=== PATIENT | male | born 1960 | race Caucasian/White ===

== ENCOUNTER 2016-12-01 07:33 | Day surgery (SDC) | payer MEDICARE, OTHER ==
[~2016-12-01 07:33] MED LIST: LACTATED RINGERS 1,000 ML IV SCH
[2016-12-01] MEDS ORDERED: LIDOCAINE 1% 20 ML VIAL (10MG/ML) FOR IV START INTRADERMA ONE (08:07)
[2016-12-01] MEDS ORDERED: PROPOFOL 10 MG/ML 20 ML VIAL IV ONE (08:48)
[2016-12-01] MEDS ORDERED: LIDOCAINE 1% INJ 10MG/ML (20 ML MDV) ONE (08:48)
--- NOTE | 2016-12-01 14:57 | P.PCN ---
Date of Procedure: 12/01/16 Preoperative Diagnosis: Postoperative Diagnosis: Procedure(s) Performed: Procedure: Colonoscopy and biopsy and polypectomy. Preoperative diagnosis: History of rectal polyp. Postoperative diagnosis: 1. Flat cecal and descending colon polyps biopsied. 2. Flat rectal polyp removed piecemeal. Sigmoid diverticulosis. Preparation: HalfLytely prep. Sedation: Was provided by anesthesia. Brief clinical history: The patient is a 56-year-old male with history of reflux esophagitis and flat adenomatous rectal polyps. The patient had colonoscopy in the past and was recommended a repeat exam to remove any residual polyps in the rectum and to possibly use argon plasma coagulation. The patient has been noted to have positive occult blood in his stools in the past. Procedure: With the patient on his left lateral decubitus position and after informed consent and adequate sedation, the perianal area was inspected and it did not show any fissures or fistulas. There were no masses felt on digital rectal examination. The Olympus CFQ 160L video colonoscope was then inserted in the rectum and the usual fashion and advanced to the cecum. There were several diverticular orifices seen scattered in the sigmoid with no evidence of acute diverticulitis or strictures. There was a flat benign appearing cecal polyp spread over an area of around 2 cm or so in greatest dimension. This was biopsied. In addition, there was a smaller flat polyp in the proximal descending colon which I biopsied as well. In the rectum, close to the the anorectal junction, there was a flat polypoid area extending to a surface of 2 cm or so in greatest dimension. I removed that polyp piecemeal with the snare and I did not think we need to apply the argon plasma coagulation at this time. There was good hemostasis. I retroflexed the endoscope in the rectum before the endoscope was withdrawn. The patient tolerated the procedure well. Plan: The patient was reassured and I discussed with his caregivers/legal guardians. I would consider repeat exam in 6 months to 1 year depending on his pathology results. I would keep you updated on his progress. Implants: Indications for Procedure: Operative Findings: Description of Procedure:
== END 2016-12-01 10:30 | disposition home or self-care (01) ==
LOC: ORWHC2ENDO 07:33
DX: Z12.11 Encounter for screening for malignant neoplasm of colon (principal); D12.0 Benign neoplasm of cecum; D12.4 Benign neoplasm of descending colon; D12.8 Benign neoplasm of rectum; K57.30 Diverticulosis of large intestine without perforation or abscess without bleeding; E07.9 Disorder of thyroid, unspecified; I25.10 Atherosclerotic heart disease of native coronary artery without angina pectoris; Z79.02 Long term (current) use of antithrombotics/antiplatelets; Z79.899 Other long term (current) drug therapy
CPT/HCPCS: 88305; 45380; 45385; J2001; J2704

== ENCOUNTER 2017-01-12 20:52 | Emergency (ER) | payer MEDICARE, OTHER ==
[2017-01-12 21:07] LABS: Basophils % (A) 0 %; CH 35.4; CHCM 35.3; Eosinophils % (A) 0 %; HCT 42.4 % (39.0-53.0); HDW 2.25; Luc # (Auto) 0.31; Luc % (Auto) 3; Lymphocytes # (A) 1.5 k/uL (1.0-4.8); Lymphocytes % (A) 15 %; MCH 35.6 pg (25.0-35.0); MCHC 35.4 g/dL (31.0-37.0); MCV 100.7 fL (80.0-100.0); Macrocytosis Slight; Mean Platelet Volume 8.1; Monocytes # (A) 0.8 k/uL (0-1.0); Monocytes % (A) 7 %; Neutrophils # (A) 7.8 k/uL (1.3-7.7); Neutrophils % (A) 75 %; RBC 4.21 m/uL (4.30-5.90); RDW 14.2 % (11.5-15.5); WBC 10.4 k/uL (3.8-10.6); WBC (Perox) 10.15
[2017-01-12] MEDS ORDERED: DIPH,PERTUS(ACELL)TETVAC-LF 0.5 ML VIAL IM ONE (21:08)
[2017-01-12] MEDS ORDERED: ceFAZolin 1,000 MG in DEXTROSE/WATER 1 50ML.BAG IVPB STA (21:10)
[2017-01-12 21:16] LABS: INR 0.9 (<1.2); Partial Thromboplastin Time 26.7 sec (22.0-30.0); Prothrombin Time 9.5 sec (9.0-12.0)
[2017-01-12 21:25] VITALS: RESP 18
[2017-01-12 21:28] LABS: ALT 32 U/L (21-72); AST 28 U/L (17-59); Alkaline Phosphatase 106 U/L (38-126); Amylase 57 U/L (30-110); Anion Gap 11 mmol/L; Blood Urea Nitrogen 7 mg/dL (9-20); Calcium 8.2 mg/dL (8.4-10.2); Carbon Dioxide 21 mmol/L (22-30); Chloride 91 mmol/L (98-107); Glucose 88 mg/dL (74-99); Non-African American GFR(MDRD) >60 (>60 ml/min/1.73 sqM); Potassium 4.6 mmol/L (3.5-5.1); Sodium 123 mmol/L (137-145); Total Bilirubin 0.4 mg/dL (0.2-1.3); Total Protein 6.5 g/dL (6.3-8.2)
--- NOTE | 2017-01-12 21:28 | ED ---
Fall HPI - General Stated Complaint: fall Time Seen by Provider: 01/12/17 21:19 - History of Present Illness Initial Comments: This is a 56-year-old male on Plavix who presents emergency department for a fall and scalp laceration. Per EMS it was unwitnessed. He lives at a assisted living facility. Staff went in to check on him this evening and noted that there was blood all over the apartment. When they found him he was on the couch and he had blood all over his face. There is a copious amount of blood on the floor and he noticed a large scalp laceration and thus EMS was called. The patient is intoxicated and does not recall exactly what happened however he states that he fell in the kitchen. He is unsure if he lost consciousness however states that he had difficulty getting up after the floor. He denies any headache. Denies any other complaints. States that he has no pain. He does have a history of right-sided weakness. Patient was activated as a level II trauma due to the large scalp laceration on Plavix and unknown mechanism of injury. MD Complaint: fall - Related Data Home Medications Medication Instructions Recorded Confirmed Cholecalciferol (Vitamin D3) 2,000 unit PO DAILY 11/26/16 01/12/17 [Vitamin D3] Clopidogrel [Plavix] 75 mg PO DAILY 11/26/16 01/12/17 Docusate [Colace] 100 mg PO BID 11/26/16 01/12/17 Levothyroxine Sodium [Synthroid] 125 mcg PO DAILY 11/26/16 01/12/17 Melatonin 3 mg PO HS 11/26/16 01/12/17 Potassium Chloride ER [K-Dur 20] 20 meq PO DAILY 11/26/16 01/12/17 Ranitidine HCl [Zantac] 75 mg PO HS 11/26/16 01/12/17 Sertraline HCl [Zoloft] 150 mg PO DAILY 11/26/16 01/12/17 Tamsulosin HCl [Flomax] 0.4 mg PO DAILY 11/26/16 01/12/17 risperiDONE [RisperDAL] 1 mg PO BID 11/26/16 01/12/17 Calcium Carbonate/Vitamin D3 1 tab PO DAILY 01/12/17 01/12/17 [Calcium 600-Vit D3 400 Caplet] Allergies Allergy/AdvReac Type Severity Reaction Status Date / Time No Known Allergies Allergy Verified 01/12/17 21:08 Review of Systems ROS Statement: Those systems with pertinent positive or pertinent negative responses have been documented in the HPI. ROS Other: All systems not noted in ROS Statement are negative. General Exam - General Exam Comments Initial Comments: Constitutional: Awake alert Appears comfortable Head: No cephalic, there is a 9 cm central parietal scalp laceration that is curvilinear and goes down to the skull periosteum. Bleeding is well controlled with pressure. 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 Psych: Appropriate mood and affect Course Vital Signs 01/12/17 21:21 Temperature 96.7 F L Pulse Rate 92 Respiratory 18 Rate Blood Pressure 126/70 O2 Sat by Pulse 98 Oximetry - Reevaluation(s) Reevaluation #1: 01/12/17 21:28 EKG showing normal sinus rhythm with a rate of 98. No abnormal ST segment changes or T-wave inversions. QTC is 477. All other intervals are normal. There is one PVC. Reevaluation #2: 01/12/17 21:[address] Zelaya on the phone. I reported all injuries and current workup in process. Due to the unclear history and possible LOC with the patient being on Plavix with significant head trauma her recommendation was to send the patient to [facility] for monitoring. Procedures - Laceration Laceration #1 Consent Obtained: verbal consent Time Out Performed: No Indication: laceration Site: scalp Description: linear Depth: simple, single layer Sedation/Analgesia: none Anesthetic Used: lidocaine 2%, with epi Anesthesia Technique: local infiltration Amount (mls): 10 Pre-repair: wound explored, irrigated extensively Type of Sutures: nylon Size of Sutures: 4-0 Number of Sutures: 7 Technique: horizontal mattress Patient Tolerated Procedure: well, no complications Medical Decision Making - Medical Decision Making This is a 56-year-old male who presents emergency department for a fall. A large scalp laceration that was repaired at bedside with 7 horizontal mattress sutures. Bleeding was well-controlled. CT of the head and neck which were unremarkable. Had no other acute injuries found. However due to his story and unknown loss of consciousness and being on Plavix with significant head trauma the decision was made to transfer to higher level of care for neurosurgery in the event that the patient decompensated and this was discussed with Dr. Zelaya. The patient was accepted for transfer by Dr. Mullins. Patient is currently stable for transfer to [facility]. - Lab Data Result diagrams: 01/12/17 20:55 01/12/17 20:55 Lab Results 01/12/17 01/12/17 01/12/17 Range/Units 20:55 20:55 20:55 WBC 10.4 (3.8-10.6) k/uL RBC 4.21 L (4.30-5.90) m/uL Hgb 15.0 (13.0-17.5) gm/dL Hct 42.4 (39.0-53.0) % MCV 100.7 H (80.0-100.0) fL MCH 35.6 H (25.0-35.0) pg MCHC 35.4 (31.0-37.0) g/dL RDW 14.2 (11.5-15.5) % Plt Count 217 (150-450) k/uL Neutrophils % 75 % Lymphocytes % 15 % Monocytes % 7 % Eosinophils % 0 % Basophils % 0 % Neutrophils # 7.8 H (1.3-7.7) k/uL Lymphocytes # 1.5 (1.0-4.8) k/uL Monocytes # 0.8 (0-1.0) k/uL Eosinophils # 0.0 (0-0.7) k/uL Basophils # 0.0 (0-0.2) k/uL Macrocytosis Slight PT (9.0-12.0) sec INR (<1.2) APTT (22.0-30.0) sec Sodium 123 L (137-145) mmol/L Potassium 4.6 (3.5-5.1) mmol/L Chloride 91 L (98-107) mmol/L Carbon Dioxide 21 L (22-30) mmol/L Anion Gap 11 mmol/L BUN 7 L (9-20) mg/dL Creatinine 0.80 (0.66-1.25) mg/dL Est GFR (MDRD) Af Amer >60 (>60 ml/min/1.73 sqM) Est GFR (MDRD) Non-Af >60 (>60 ml/min/1.73 sqM) Glucose 88 (74-99) mg/dL Plasma Lactic Acid Augusto (0.7-2.0) mmol/L Calcium 8.2 L (8.4-10.2) mg/dL Total Bilirubin 0.4 (0.2-1.3) mg/dL AST 28 (17-59) U/L ALT 32 (21-72) U/L Alkaline Phosphatase 106 (38-126) U/L Total Creatine Kinase 206 H (55-170) U/L CK-MB (CK-2) 2.7 H* (0.0-2.4) ng/mL CK-MB (CK-2) Rel Index 1.3 Troponin I <0.012 (0.000-0.034) ng/mL Total Protein 6.5 (6.3-8.2) g/dL Albumin 3.3 L (3.5-5.0) g/dL Amylase 57 (30-110) U/L Lipase 84 (23-300) U/L Serum Alcohol 272 mg/dL Blood Type Blood Type Recheck Antibody Screen Spec Expiration Date 01/12/17 01/12/17 01/12/17 Range/Units 20:55 20:55 20:55 WBC (3.8-10.6) k/uL RBC (4.30-5.90) m/uL Hgb (13.0-17.5) gm/dL Hct (39.0-53.0) % MCV (80.0-100.0) fL MCH (25.0-35.0) pg MCHC (31.0-37.0) g/dL RDW (11.5-15.5) % Plt Count (150-450) k/uL Neutrophils % % Lymphocytes % % Monocytes % % Eosinophils % % Basophils % % Neutrophils # (1.3-7.7) k/uL Lymphocytes # (1.0-4.8) k/uL Monocytes # (0-1.0) k/uL Eosinophils # (0-0.7) k/uL Basophils # (0-0.2) k/uL Macrocytosis PT 9.5 (9.0-12.0) sec INR 0.9 (<1.2) APTT 26.7 (22.0-30.0) sec Sodium (137-145) mmol/L Potassium (3.5-5.1) mmol/L Chloride (98-107) mmol/L Carbon Dioxide (22-30) mmol/L Anion Gap mmol/L BUN (9-20) mg/dL Creatinine (0.66-1.25) mg/dL Est GFR (MDRD) Af Amer (>60 ml/min/1.73 sqM) Est GFR (MDRD) Non-Af (>60 ml/min/1.73 sqM) Glucose (74-99) mg/dL Plasma Lactic Acid Augusto 3.3 H* (0.7-2.0) mmol/L Calcium (8.4-10.2) mg/dL Total Bilirubin (0.2-1.3) mg/dL AST (17-59) U/L ALT (21-72) U/L Alkaline Phosphatase (38-126) U/L Total Creatine Kinase (55-170) U/L CK-MB (CK-2) (0.0-2.4) ng/mL CK-MB (CK-2) Rel Index Troponin I (0.000-0.034) ng/mL Total Protein (6.3-8.2) g/dL Albumin (3.5-5.0) g/dL Amylase (30-110) U/L Lipase (23-300) U/L Serum Alcohol mg/dL Blood Type O Positive Blood Type Recheck O Pos Antibody Screen NEGATIVE Spec Expiration Date 01/15/2017 - 2354 Disposition Clinical Impression: Fall, Scalp laceration, Hyponatremia Disposition: OTHER INSTITUTION NOT DEFINED Condition: Stable - Out of Hospital Transfer - Req. Specs Out of Hospital Transfer - Requested Specifics: Other Emergency Center ([facility]
[2017-01-12 21:29] LABS: Creatine Kinase 206 U/L (55-170)
[2017-01-12 21:36] LABS: Alcohol 272 mg/dL
[2017-01-12 21:42] LABS: Troponin I <0.012 ng/mL (0.000-0.034)
[2017-01-12 21:46] LABS: Creatine Kinase MB 2.7 ng/mL (0.0-2.4)
[2017-01-12] MEDS ORDERED: SODIUM CHLORIDE 0.9% 1,000 ML IV STA (21:50)
--- NOTE | 2017-01-12 22:14 | XR ---
AP pelvis HISTORY: Trauma and pain frontal view of the pelvis submitted on 2 images No comparisons Patient is rotated. Bone mineralization is reduced. Joint spaces are mildly reduced in the hips. Vasc ular calcifications are present within the pelvis. IMPRESSION: No fracture or dislocation
--- NOTE | 2017-01-12 22:15 | XR ---
EXAMINATION TYPE: XR chest 1V DATE OF EXAM: 01/12/2017 COMPARISON: Prior chest x-ray 03/15/2015 HISTORY: Trauma and pain TECHNIQUE: Single frontal view of the chest is obtained. FINDINGS: There is no focal air space opacity, pleural effusion, or pneumothorax seen. The patient is rotated. The cardiac silhouette size is within normal limits accounting for rotation and technique . The osseous structures are intact. IMPRESSION: No acute process.
--- NOTE | 2017-01-12 22:32 | CT ---
EXAMINATION TYPE: CT brain jethro zuleta DATE OF EXAM: 01/12/2017 COMPARISON: NONE HISTORY: Fall today with mutiple injuries. CT DLP: 1848 mGycm Automated exposure control for dose reduction was used. TECHNIQUE: CT scan of the head and cervical spine are performed without contrast. FINDINGS: There is a focus of prominent cutaneous soft tissue swelling over the left frontal bone. Th e soft tissue swelling contains high attenuation consistent with subcutaneous hemorrhage, in addition to a few tiny air bubbles. The underlying left frontal bone is negative for fracture. The remainder of the skull is negative for fracture. The paranasal sinuses and mastoid sinus air cells and middle e ar cavities are clear. There is no acute intracranial hemorrhage, mass effect, or midline shift. The ventricles and sulci are within normal limits in size. The globes are intact and the visualized sinuses are clear. Cervical spine is visualized in its entirety from C1 through upper thoracic levels and demonstrates s atisfactory alignment without evidence of acute fracture or dislocation. Prevertebral soft tissue ap pears within normal limits. The C1-C2 articulation is unremarkable. Moderate multilevel cervical spo ndylosis changes are appreciated. IMPRESSION: 1. THERE IS NO ACUTE FRACTURE OR DISLOCATION EVIDENT IN THE CERVICAL SPINE. 2. NO ACUTE INTRACRANIAL HEMORRHAGE, MASS EFFECT, OR MIDLINE SHIFT IS SEEN. SUBCUTANEOUS HEMATOMA NOT ED OVER THE LEFT FRONTAL BONE.
--- NOTE | 2017-01-12 22:34 | CT ---
EXAMINATION TYPE: CT facial bones wo con DATE OF EXAM: 01/12/2017 COMPARISON: NONE HISTORY: Fall today with mutiple injuries. CT DLP: 567 mGycm Automated exposure control for dose reduction was used. TECHNIQUE: CT scan of the sinuses is performed without contrast, axial images are obtained, coronal r eformatted images are also reviewed. FINDINGS: There is no facial skeleton fracture or malalignment. The paranasal sinuses including the frontal, ethmoid, sphenoid, and maxillary sinuses bilaterally ar e well-aerated without abnormal opacification. The ostiomeatal complex is patent bilaterally on the coronal images. Visualized portion of mastoid air cells show no abnormal opacification. The globes are intact bilate rally. IMPRESSION: Negative for fracture or malalignment. The paranasal sinuses are clear and the ostiomeata l complex is patent bilaterally.
[2017-01-12 23:49] VITALS: BP 109/63; PULSE 75; TEMP 96.9
== END 2017-01-12 23:40 | disposition other institution (70) ==
LOC: EC 20:52
DX: S01.01XA Laceration without foreign body of scalp, initial encounter (principal); E87.1 Hypo-osmolality and hyponatremia; Z23 Encounter for immunization; Z79.01 Long term (current) use of anticoagulants; Z79.899 Other long term (current) drug therapy; W19.XXXA Unspecified fall, initial encounter; Y92.000 Kitchen of unspecified non-institutional (private) residence as the place of occurrence of the external cause
CPT/HCPCS: 99285 ×2; 96365 ×2; 96361 ×3; 90471 ×2; 12004 ×2; 36415; 93005; 86900; 86901; 80053; 82150; 82550; 82553; 83605; 83690; 84484; 85025; 85610; 85730; 86850; 80320; 71010; 72170; 72125; 70486; 70450; 90715; J0690

== ENCOUNTER → 2020-09-27 | Outpatient (CLI) | payer MEDICARE, OTHER ==
--- NOTE | 2020-09-27 19:16 | CTL ---
EXAMINATION TYPE: CT Low Dose Lung DATE OF EXAM ORDERED: 09/27/2020 HISTORY: Personal history of tobacco use. Lung cancer screening CT DLP: 70.[address] CTDI: 2.10 mGy Automated exposure control for dose reduction was used. SCREENING VISIT: Yes COMPARISON: 01/12/2017 and 03/15/2015 chest radiographs TECHNIQUE: Low dose computed tomography scan was performed through the chest at 1 mm thick sections a nd reconstructed images in the coronal plane at [address] DIAGNOSTIC QUALITY: Satisfactory FINDINGS: LUNG NODULES: None. LUNGS: COPD: Severity: Mild centrilobular emphysema. Apical blebs and bulla. Scattered paraseptal emphysema is also seen. Fibrosis: Severity: None Lymph nodes: No lymphadenopathy. Other findings: None RIGHT PLEURAL SPACE: Effusion: None Calcification: None Thickening: Mild Pneumothorax: None LEFT PLEURAL SPACE: Effusion: None Calcification: None Thickening: Mild Pneumothorax: None HEART: Heart Size: Normal Coronary calcification: Marked Pericardial effusion: None OTHER FINDINGS: Upper abdomen: Visualized portions of the adrenal glands are normal. Bony thorax: There are numerous redemonstrated compression deformities of the thoracic spine involvin g T6, T9, and T12, which are similar to 2015 x-ray comparison. Supraclavicular region: Unremarkable. Other: Bilateral gynecomastia. IMPRESSION: 1. No suspicious pulmonary nodules. 2. Centrilobular and paraseptal mild emphysematous change. 3. Marked calcified atherosclerotic disease. 4. Chronic compression deformities of the thoracic spine. CT LUNG RAD AND CT CHEST RECOMMENDATION: Lung-Rad 1 Negative: Continue annual screening with LDCT in 12 months. S Modifier (other clinically significant findings): Marked calcified atherosclerotic disease.
== END | disposition home or self-care (01) ==
LOC: RADCTMAIN 12:26 → EEVIPCON 12:40
DX: Z12.2 Encounter for screening for malignant neoplasm of respiratory organs (principal); J43.2 Centrilobular emphysema; I25.10 Atherosclerotic heart disease of native coronary artery without angina pectoris
CPT/HCPCS: 71271

== ENCOUNTER 2022-05-08 15:58 | Inpatient (IN) | payer MEDICARE, OTHER ==
[2022-05-08 16:48] LABS: Basophils % (A) 0 %; Eosinophils % (A) 0 %; HCT 42.5 % (39.0-53.0); HGB 14.9 gm/dL (13.0-17.5); Lymphocytes # (A) 0.5 k/uL (1.0-4.8); Lymphocytes % (A) 4 %; MCH 34.2 pg (25.0-35.0); MCV 97.9 fL (80.0-100.0); Mean Platelet Volume 7.6; Monocytes # (A) 0.6 k/uL (0-1.0); Monocytes % (A) 4 %; Neutrophils # (A) 13.1 k/uL (1.3-7.7); Neutrophils % (A) 91 %; Platelet Count 329 k/uL (150-450); RBC 4.34 m/uL (4.30-5.90); RDW 13.1 % (11.5-15.5); WBC 14.4 k/uL (3.8-10.6)
[2022-05-08] MEDS ORDERED: THIAMINE 100 MG/ML 2 ML VIAL IM STA (16:49)
--- NOTE | 2022-05-08 16:51 | ED ---
Altered Mental Status HPI - General Chief Complaint: Altered Mental Status Stated Complaint: confusion Time Seen by Provider: 05/08/22 16:00 Source: patient, EMS Mode of arrival: EMS Limitations: altered mental status - History of Present Illness Initial Comments: This patient is 62-year-old man with history of previous heavy alcohol use who is sent from what appears to be adult foster care living situation to have evaluation here. He reportedly has been behaving bizarrely, the main thing they note was that he often will leave the stove on and then walk away from it. When I interview the patient, he has no complaints. 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 Complaint: other -: unknown Consistency of Symptoms: unknown Context: unknown Associated Symptoms: denies other symptoms - Related Data Home Medications Medication Instructions Recorded Confirmed Cholecalciferol (Vitamin D3) 2,000 unit PO DAILY 11/26/16 01/12/17 [Vitamin D3] Clopidogrel [Plavix] 75 mg PO DAILY 11/26/16 01/12/17 Docusate [Colace] 100 mg PO BID 11/26/16 01/12/17 Levothyroxine Sodium [Synthroid] 125 mcg PO DAILY 11/26/16 01/12/17 Melatonin 3 mg PO HS 11/26/16 01/12/17 Potassium Chloride ER [K-Dur 20] 20 meq PO DAILY 11/26/16 01/12/17 Sertraline HCl [Zoloft] 150 mg PO DAILY 11/26/16 01/12/17 Tamsulosin HCl [Flomax] 0.4 mg PO DAILY 11/26/16 01/12/17 raNITIdine HCL [Zantac] 75 mg PO HS 11/26/16 01/12/17 risperiDONE [RisperDAL] 1 mg PO BID 11/26/16 01/12/17 Calcium Carbonate/Vitamin D3 1 tab PO DAILY 01/12/17 01/12/17 [Calcium 600-Vit D3 400 Caplet] Allergies Allergy/AdvReac Type Severity Reaction Status Date / Time No Known Allergies Allergy Verified 05/08/22 16:17 Review of Systems ROS Statement: Those systems with pertinent positive or pertinent negative responses have been documented in the HPI. ROS Other: All systems not noted in ROS Statement are negative. Limitations: ROS unobtainable due to patients medical condition Constitutional: Denies: fever Respiratory: Denies: dyspnea Cardiovascular: Denies: chest pain Gastrointestinal: Denies: abdominal pain Past Medical History Past Medical History: Hypertension History of Any Multi-Drug Resistant Organisms: None Reported Past Surgical History: No Surgical Hx Reported Smoking Status: Current every day smoker Past Alcohol Use History: Abuse Past Drug Use History: None Reported General Exam Limitations: no limitations General appearance: alert, in no apparent distress Head exam: Present: atraumatic, normocephalic Eye exam: Present: normal appearance, PERRL, EOMI. Absent: scleral icterus, conjunctival injection Neck exam: Present: normal inspection. Absent: tenderness Respiratory exam: Present: normal lung sounds bilaterally. Absent: respiratory distress, wheezes, rales, rhonchi, stridor, chest wall tenderness Cardiovascular Exam: Present: regular rate, normal rhythm, normal heart sounds. Absent: systolic murmur, diastolic murmur, rubs, gallop GI/Abdominal exam: Present: soft. Absent: distended, tenderness, guarding, rebound, mass Extremities exam: Present: normal inspection, full ROM, normal capillary refill. Absent: pedal edema, calf tenderness Back exam: Present: normal inspection. Absent: vertebral tenderness Neurological exam: Present: alert. Absent: motor sensory deficit Skin exam: Present: warm, dry, intact, normal color. Absent: rash Course Vital Signs 05/08/22 05/08/22 15:59 17:38 Pulse Rate 96 87 Respiratory 18 18 Rate Blood Pressure 155/87 142/88 O2 Sat by Pulse 96 95 Oximetry Medical Decision Making - Lab Data Result diagrams: 05/08/22 16:31 05/08/22 16:31 Lab Results 05/08/22 05/08/22 05/08/22 Range/Units 16:31 16:31 16:31 WBC 14.4 H (3.8-10.6) k/uL RBC 4.34 (4.30-5.90) m/uL Hgb 14.9 (13.0-17.5) gm/dL Hct 42.5 (39.0-53.0) % MCV 97.9 (80.0-100.0) fL MCH 34.2 (25.0-35.0) pg MCHC 35.0 (31.0-37.0) g/dL RDW 13.1 (11.5-15.5) % Plt Count 329 (150-450) k/uL MPV 7.6 Neutrophils % 91 % Lymphocytes % 4 % Monocytes % 4 % Eosinophils % 0 % Basophils % 0 % Neutrophils # 13.1 H (1.3-7.7) k/uL Lymphocytes # 0.5 L (1.0-4.8) k/uL Monocytes # 0.6 (0-1.0) k/uL Eosinophils # 0.0 (0-0.7) k/uL Basophils # 0.0 (0-0.2) k/uL PT 9.7 (9.0-12.0) sec INR 0.9 (<1.2) APTT 22.8 (22.0-30.0) sec Sodium 136 L (137-145) mmol/L Potassium 4.3 (3.5-5.1) mmol/L Chloride 104 (98-107) mmol/L Carbon Dioxide 27 (22-30) mmol/L Anion Gap 5 mmol/L BUN 15 (9-20) mg/dL Creatinine 1.14 (0.66-1.25) mg/dL Est GFR (CKD-EPI)AfAm 79 (>60 ml/min/1.73 sqM) Est GFR (CKD-EPI)NonAf 68 (>60 ml/min/1.73 sqM) Glucose 113 H (74-99) mg/dL Calcium 9.1 (8.4-10.2) mg/dL Total Bilirubin 0.4 (0.2-1.3) mg/dL AST 29 (17-59) U/L ALT 31 (4-49) U/L Alkaline Phosphatase 90 (38-126) U/L Ammonia (<30) umol/L Troponin I (0.000-0.034) ng/mL Total Protein 6.7 (6.3-8.2) g/dL Albumin 3.8 (3.5-5.0) g/dL Serum Alcohol <10 mg/dL 05/08/22 05/08/22 Range/Units 16:31 16:31 WBC (3.8-10.6) k/uL RBC (4.30-5.90) m/uL Hgb (13.0-17.5) gm/dL Hct (39.0-53.0) % MCV (80.0-100.0) fL MCH (25.0-35.0) pg MCHC (31.0-37.0) g/dL RDW (11.5-15.5) % Plt Count (150-450) k/uL MPV Neutrophils % % Lymphocytes % % Monocytes % % Eosinophils % % Basophils % % Neutrophils # (1.3-7.7) k/uL Lymphocytes # (1.0-4.8) k/uL Monocytes # (0-1.0) k/uL Eosinophils # (0-0.7) k/uL Basophils # (0-0.2) k/uL PT (9.0-12.0) sec INR (<1.2) APTT (22.0-30.0) sec Sodium (137-145) mmol/L Potassium (3.5-5.1) mmol/L Chloride (98-107) mmol/L Carbon Dioxide (22-30) mmol/L Anion Gap mmol/L BUN (9-20) mg/dL Creatinine (0.66-1.25) mg/dL Est GFR (CKD-EPI)AfAm (>60 ml/min/1.73 sqM) Est GFR (CKD-EPI)NonAf (>60 ml/min/1.73 sqM) Glucose (74-99) mg/dL Calcium (8.4-10.2) mg/dL Total Bilirubin (0.2-1.3) mg/dL AST (17-59) U/L ALT (4-49) U/L Alkaline Phosphatase (38-126) U/L Ammonia <9 (<30) umol/L Troponin I 0.036 H* (0.000-0.034) ng/mL Total Protein (6.3-8.2) g/dL Albumin (3.5-5.0) g/dL Serum Alcohol mg/dL - EKG Data -: EKG Interpreted by Me EKG shows normal: sinus rhythm, axis (Normal), intervals (Normal), QRS complexes (Suspect old anteroseptal infarct.) Rate: normal (Rate 96 bpm) Disposition Clinical Impression: Altered mental status, Elevated troponin I level Disposition: ADMITTED IP TO THIS [facility] Condition: Fair Instructions (If sedation given, give patient instructions): Altered Mental Status (ED) Is patient prescribed a controlled substance at d/c from ED?: No Referrals: [facility] [Primary Care Provider] - 1-2 days
[2022-05-08 17:09] LABS: INR 0.9 (<1.2); Partial Thromboplastin Time 22.8 sec (22.0-30.0); Prothrombin Time 9.7 sec (9.0-12.0)
[2022-05-08 17:18] LABS: ALT 31 U/L (4-49); AST 29 U/L (17-59); African American GFR (CKD) 79 (>60 ml/min/1.73 sqM); Albumin 3.8 g/dL (3.5-5.0); Alcohol <10 mg/dL; Alkaline Phosphatase 90 U/L (38-126); Anion Gap 5 mmol/L; Blood Urea Nitrogen 15 mg/dL (9-20); Calcium 9.1 mg/dL (8.4-10.2); Carbon Dioxide 27 mmol/L (22-30); Chloride 104 mmol/L (98-107); Glucose 113 mg/dL (74-99); Non-African American GFR(CKD) 68 (>60 ml/min/1.73 sqM); Potassium 4.3 mmol/L (3.5-5.1); Sodium 136 mmol/L (137-145); Total Bilirubin 0.4 mg/dL (0.2-1.3); Total Protein 6.7 g/dL (6.3-8.2)
--- NOTE | 2022-05-08 17:37 | CT ---
EXAMINATION TYPE: CT brain wo con CT DLP: 1072.4 mGycm, Automated exposure control for dose reduction was used. DATE OF EXAM: 05/08/2022 5:06 PM COMPARISON: 01/12/2017. CLINICAL INDICATION:Male, 62 years old with history of Altered mental status TECHNIQUE: Brain: Axial CT images of the brain were obtained with coronal and sagittal reformats created and rev iewed. Contrast used: None. Oral contrast used: None. FINDINGS: Brain: Extra-axial spaces: No abnormal extra-axial fluid collections. Ventricular system: Dilatation in proportion to cerebral atrophy. Cerebral parenchyma: Hypodense remote injury of the right basal ganglia. Cerebral atrophy. No acute i ntraparenchymal hemorrhage or mass effect. The pham-white junction is well differentiated. Scattered hypoattenuating areas are seen within the white matter. Cerebellum: Unremarkable. Mass effect: No evidence of midline shift. Intracranial vasculature: Atherosclerotic calcifications of the intracranial vessels. Soft tissues: Normal. Calvarium/osseous structures: No depressed skull fracture. Paranasal sinuses and mastoid air cells: Mild scattered paranasal sinus disease. Visualized orbits: Bilateral aphakia IMPRESSION: 1. No acute intracranial process. 2. New from 2017 but appears chronic, right basal ganglia injury. 3. Scattered nonspecific white matter changes.
--- NOTE | 2022-05-08 17:41 | XR ---
EXAMINATION TYPE: XR chest 2V DATE OF EXAM: 05/08/2022 5:16 PM COMPARISON: Chest radiographs from 01/12/2017 TECHNIQUE: XR chest 2V Frontal and lateral views of the chest. CLINICAL INDICATION:Male, 62 years old with history of altered mental status; FINDINGS: Lungs/Pleura: There is no evidence of pleural effusion, focal consolidation, or pneumothorax. Pulmonary vascularity: Unremarkable. Heart/mediastinum: Cardiomediastinal silhouette is unremarkable. Musculoskeletal: No acute osseous pathology. Right proximal humerus fixation changes. The fracture si te appears to be an malalignment distal right humerus shortened up in the axilla. IMPRESSION: 1. No acute cardiopulmonary disease/process. 2. 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
[2022-05-08] MEDS ORDERED: NALOXONE 0.4 MG/ML 1 ML VIAL IV PRN (21:41)
[2022-05-08] MEDS ORDERED: ACETAMINOPHEN TAB 325 MG TAB PO PRN (21:41)
[2022-05-08] MEDS: SODIUM CHLORIDE 0.9% 1,000 ML IV SCH (22:06)
[2022-05-08 22:24] LABS: Amphetamine Screen,Urine Not Detected (NotDetected); Barbiturate Screen,Urine Not Detected (NotDetected); Benzodiazepines Screen,Urine Not Detected (NotDetected); Cocaine Screen,Urine Not Detected (NotDetected); Methadone Screen, Urine Not Detected (NotDetected); Opiate Screen,Urine Not Detected (NotDetected); Oxycodone Screen, Urine Not Detected (NotDetected); Phencyclidine Screen,Urine Not Detected (NotDetected); Tricyclic Antidepressant,Urine Not Detected (NotDetected); Urn Cannabinoid Scrn Not Detected (NotDetected)
--- NOTE | 2022-05-09 01:12 | P.HPIM ---
History of Present Illness H&P Date: 05/08/22 The patient is a 62-year-old male, resident of an adult foster care with a PMH of EtOH abuse, CVA with residual right-sided deficits and hypothyroidism who was sent to the emergency room due to confusion. The patient reports that over the past few weeks to months, he has not been feeling quite like himself and he has had an unsteady gait and difficulty ambulating. He denies experiencing dizziness or falls. He also reports not getting along well with other people at his facility. He reports a history of CVA 7-8 years ago with residual right upper extremity contracture. As per the ED physician, the patient was sent as the staff at the foster care were concerned since the patient would reportedly turn on the stove and walk away. The patient denies alcohol use. He also denied experiencing chest discomfort, fever, chills, cough, urinary complaints, nausea, or vomiting. CT brain in the emergency room revealed a likely chronic right basal ganglia injury along with scattered nonspecific white matter changes. 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 EKG revealed sinus rhythm at 96 bpm with poor R-wave progression and Q waves in leads V1 to V3. Laboratory evaluation was remarkable for leukocytosis of 14.4, troponin 0.036, and an unremarkable urine toxicology. Review of systems: Pertinent positives and negatives as discussed in HPI, a complete review of systems was performed and all other systems are negative. Physical examination: General: non toxic, no distress, appears older than stated age, normal weight Derm: no unusual rashes/lesions, warm Head: atraumatic, normocephalic, symmetric Eyes: EOMI, no lid lag, anicteric sclera, pupils equal round reactive to light ENT: Nose and ears atraumatic Neck: No cervical lymphadenopathy, trachea midline, supple Mouth: no lip lesion, mucus membranes moist Cardiovascular: S1S2 reg, no murmur, positive dorsalis pedis pulse bilateral, no edema Lungs: CTA bilateral, no rhonchi, no rales, no accessory muscle use Abdominal: soft, nontender to palpation, no guarding Ext: muscle strength 5/5 left upper and lower extremities, strength 3 out of 5 on the right lower extremity with right upper extremity contracture noted Neuro: CN II-XI grossly intact Psych: Alert, oriented, appropriate affect Assessment/plan Altered mental status with unsteady gait -Unclear etiology -Patient denying any new weakness or strokelike symptoms -PT consult Leukocytosis -Likely secondary to acute stressor -No signs of active infection at this time Chronic conditions: History of CVA, EtOH abuse -Continue with home meds DVT prophylaxis -Heparin subcu The patient is admitted with an anticipated less than 2 midnight stay for evaluation of AMS CODE STATUS: Full Code Discussed with: Patient Anticipated discharge date: in am Anticipated discharge place: Home Past Medical History Past Medical History: Hypertension History of Any Multi-Drug Resistant Organisms: None Reported Past Surgical History: No Surgical Hx Reported Smoking Status: Current every day smoker Past Alcohol Use History: Abuse Past Drug Use History: None Reported - Past Family History Mother Family Medical History: CVA/TIA Medications and Allergies Home Medications Medication Instructions Recorded Confirmed Type Cholecalciferol (Vitamin D3) 2,000 unit PO DAILY 11/26/16 01/12/17 History [Vitamin D3] Clopidogrel [Plavix] 75 mg PO DAILY 11/26/16 01/12/17 History Docusate [Colace] 100 mg PO BID 11/26/16 01/12/17 History Levothyroxine Sodium [Synthroid] 125 mcg PO DAILY 11/26/16 01/12/17 History Melatonin 3 mg PO HS 11/26/16 01/12/17 History Potassium Chloride ER [K-Dur 20] 20 meq PO DAILY 11/26/16 01/12/17 History Sertraline HCl [Zoloft] 150 mg PO DAILY 11/26/16 01/12/17 History Tamsulosin HCl [Flomax] 0.4 mg PO DAILY 11/26/16 01/12/17 History raNITIdine HCL [Zantac] 75 mg PO HS 11/26/16 01/12/17 History risperiDONE [RisperDAL] 1 mg PO BID 11/26/16 01/12/17 History Calcium Carbonate/Vitamin D3 1 tab PO DAILY 01/12/17 01/12/17 History [Calcium 600-Vit D3 400 Caplet] Allergies Allergy/AdvReac Type Severity Reaction Status Date / Time No Known Allergies Allergy Verified 05/08/22 16:17 Physical Exam Vitals: Vital Signs Temp Pulse Resp BP Pulse Ox 05/08/22 21:51 97.9 F 72 18 138/74 98 05/08/22 17:38 87 18 142/88 95 12/16/22 15:59 96 18 155/87 96 Intake and Output 05/08/22 05/08/22 05/09/22 14:59 22:59 06:59 Other: Weight 63.503 kg Results CBC & Chem 7: 05/08/22 16:31 05/08/22 16:31 Labs: Abnormal Lab Results - Last 24 Hours (Table) 05/08/22 05/08/22 05/08/22 Range/Units 16:31 16:31 16:31 WBC 14.4 H (3.8-10.6) k/uL Neutrophils # 13.1 H (1.3-7.7) k/uL Lymphocytes # 0.5 L (1.0-4.8) k/uL Sodium 136 L (137-145) mmol/L Glucose 113 H (74-99) mg/dL Troponin I 0.036 H* (0.000-0.034) ng/mL 05/08/22 Range/Units 22:06 WBC (3.8-10.6) k/uL Neutrophils # (1.3-7.7) k/uL Lymphocytes # (1.0-4.8) k/uL Sodium (137-145) mmol/L Glucose (74-99) mg/dL Troponin I 0.037 H* (0.000-0.034) ng/mL
[2022-05-09] MEDS: HEPARIN SODIUM,PORCINE/PF 5,000 UNIT/0.5 ML SYRINGE SQ SCH ×2 (11:42→17:16)
[2022-05-09 12:45] LABS: HCT 46.1 % (39.0-53.0); HGB 15.2 gm/dL (13.0-17.5); Macrocytosis Slight; Mean Platelet Volume 7.8; Platelet Count 278 k/uL (150-450); RBC 4.47 m/uL (4.30-5.90); RDW 13.6 % (11.5-15.5)
[2022-05-09] MEDS: SODIUM CHLORIDE 0.9% 1,000 ML IV SCH (12:50)
[2022-05-09 13:00] LABS: ALT 28 U/L (4-49); AST 26 U/L (17-59); African American GFR (CKD) >90 (>60 ml/min/1.73 sqM); Albumin 3.7 g/dL (3.5-5.0); Alkaline Phosphatase 84 U/L (38-126); Anion Gap 6 mmol/L; Blood Urea Nitrogen 21 mg/dL (9-20); Calcium 8.2 mg/dL (8.4-10.2); Carbon Dioxide 26 mmol/L (22-30); Chloride 106 mmol/L (98-107); Glucose 110 mg/dL (74-99); MCV 103.2 fL (80.0-100.0); Magnesium 1.6 mg/dL (1.6-2.3); Non-African American GFR(CKD) 80 (>60 ml/min/1.73 sqM); Sodium 138 mmol/L (137-145); Total Bilirubin 0.3 mg/dL (0.2-1.3); Total Protein 6.4 g/dL (6.3-8.2)
--- NOTE | 2022-05-09 14:10 | P.PN ---
Subjective Progress Note Date: 05/09/22 Hospital course: The patient is a 62-year-old male, resident of an adult foster group home resides at [facility] with a past medical history of previous EtOH abuse, CVA with residual right-sided deficits and hypothyroidism. He presented to the emergency department overnight with a chief complaint of confusion. The patient reportedly stated that over the past few months he has not quite been feeling like himself and believes he has been more unsteady resulting in difficulty with ambulation. Patient reports that he has not drank any alcohol in nearly 2 weeks. He denied experiencing any dizziness, lightheadedness, falls or injuries, or any other complaints. He does have right-sided deficits from previous CVA with a right upper extremity contracture and walks with a cane. ED physician reports that staff at the foster care were contacted because the patient reportedly turned on the stove and walked away so he was sent here for evaluation. Patient underwent full evaluation in the emergency department.CBC revealed mild leukocytosis with WBC count of 14.4 and CMP unremarkable. Troponin was minimally elevated at 0.036. EKG normal sinus rhythm at 96 bpm with no noted T wave or ST abnormality showing no signs of acute ischemia upon personal review. CT head negative for acute intercranial process revealing a chronic right basal ganglia injury and scattered nonspecific white matter changes. 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 Urine drug screen negative and serum alcohol also negative. Patient admitted under our services to observation for overnight monitoring. Troponins trended and flat at 0.036, 0.037, and 0.032. Patient remained asymptomatic denying any chest pain, discomfort, shortness of breath, palpitations, cough or congestion, dizziness, lightheadedness, or any other complaints at this time. Patient remained alert and oriented to person, place, time, and situation. TSH 5.180 with free T4 of 1.44. Repeat WBC count improving down to 13.0. Physical examination: Patient seen and fully evaluated at bedside this morning. Patient alert and oriented to person, time, place, and situation. Patient showing no signs of confusion or distress. We will continue to monitor patient throughout the day and ambulate patient in room and hallway to assess gait and further monitor for any episodes of alteration in mentation. Patient will likely be discharged later this afternoon pending clinical course. General: non toxic, no distress, appears at stated age Derm: warm, dry Head: atraumatic, normocephalic, symmetric Eyes: EOMI, no lid lag, anicteric sclera Mouth: no lip lesion, mucus membranes moist Cardiovascular: S1S2 reg, no murmur, positive posterior tibial pulse bilateral, Lungs: CTA bilaterally, no rhonchi, no rales , no accessory muscle use Abdominal: soft, nontender to palpation, no guarding, no appreciable organomegaly Ext: Right arm contracted, no edema, right lower extremity weakness Neuro: CN II-X grossly intact Psych: Alert, oriented, appropriate affect Assessment/plan Altered mental status with unsteady gait, resolved. -Patient alert and oriented to person, time, place, and situation and free from any complaints, questions, or concerns. -Workup negative. -Patient stable at this time. Leukocytosis, improved. -Likely due to stress or dehydration. No signs of infection. . History of EtOH abuse, patient reports he hasn't used alcohol in almost 2 weeks. . History of CVA with right-sided residual deficit, patient walks with cane. 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 Patient denies having any pain or complaints. Patient may follow-up with orthopedic surgery for evaluation on outpatient basis. CODE STATUS: Full Code DVT prophylaxis: Heparin Discussed with: Patient Anticipated discharge date: in am Anticipated discharge place: Home A total of 36 minutes was spent on the care of this complex patient more than 50% of the time was spent in counseling and care coordination. Objective - Vital Signs Vital signs: Vital Signs Temp 97.9 F 05/08/22 21:51 Pulse 76 05/09/22 06:58 Resp 18 05/09/22 06:58 BP 142/92 05/09/22 06:58 Pulse Ox 97 05/09/22 06:58 FiO2 Intake & Output 05/08/22 05/09/22 05/09/22 18:59 06:59 18:59 Weight 63.503 kg - Labs CBC & Chem 7: 05/09/22 12:09 05/09/22 12:09 Labs: Abnormal Lab Results - Last 24 Hours (Table) 12/05/08/22 05/08/22 Range/Units 16:31 16:31 16:31 WBC 14.4 H (3.8-10.6) k/uL Neutrophils # 13.1 H (1.3-7.7) k/uL Lymphocytes # 0.5 L (1.0-4.8) k/uL Sodium 136 L (137-145) mmol/L Glucose 113 H (74-99) mg/dL Troponin I 0.036 H* (0.000-0.034) ng/mL 05/08/22 Range/Units 22:06 WBC (3.8-10.6) k/uL Neutrophils # (1.3-7.7) k/uL Lymphocytes # (1.0-4.8) k/uL Sodium (137-145) mmol/L Glucose (74-99) mg/dL Troponin I 0.037 H* (0.000-0.034) ng/mL Assessment and Plan Assessment: Sp Wallace NP rendered care for this patient independently, reviewed the findings and plan as documented in the note above. I did not physically speak with our examined the patient on this date.
[2022-05-09 14:22] LABS: T4, Free (Free Thyroxine) 1.44 ng/dL (0.78-2.19)
[2022-05-09] MEDS ORDERED: ALBUTEROL NEBULIZED 2.5 MG/3 ML INHALATION PRN (15:46)
[2022-05-09] MEDS: LOSARTAN 25 MG TAB PO SCH (15:56)
[2022-05-09] MEDS: amLODIPine 10 MG TAB PO SCH (15:56)
[2022-05-09] MEDS: CLOPIDOGREL 75 MG TAB PO SCH (17:15)
[2022-05-09] MEDS: TAMSULOSIN 0.4 MG CAP.ER.24H PO SCH (17:16)
[2022-05-09] MEDS: LEVOTHYROXINE 137 MCG TAB PO SCH (17:16)
[2022-05-09] MEDS: SERTRALINE 50 MG TAB PO SCH (17:16)
--- NOTE | 2022-05-09 18:00 | P.DS ---
Providers Date of admission: 05/08/22 21:41 Expected date of discharge: 05/09/22 Attending physician: Anthony Flynn MD Primary care physician: [facility] Hospital Course: Discharge Diagnosis: Altered mental status with unsteady gait, resolved. Patient alert and oriented to person, time, place, and situation and free from any complaints, questions, or concerns. Workup negative. Patient stable for discharge back to [facility] at this time. Leukocytosis, improved. Likely due to stress or dehydration. No signs of infection. History of EtOH abuse, patient reports he hasn't used alcohol in almost 2 weeks but does drink when he can afford it. History of CVA with right-sided residual deficit, patient walks with cane. Ambulated in room and halls with a steady gait unassisted using cane. 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 Patient denies having any pain or complaints. Patient may follow-up with orthopedic surgery for evaluation on outpatient basis as needed if becomes symptomatic. Hospital Course: The patient is a 62-year-old male, resident of an adult fostercare home and resides at [facility] with a past medical history of previous EtOH abuse, CVA with residual right-sided deficits and hypothyroidism. He presented to the emergency department overnight with a chief complaint of confusion. The patient reportedly stated that over the past few months he has not quite been feeling like himself and believes he has been more unsteady resulting in difficulty with ambulation. Patient reports that he has not drank any alcohol in nearly 2 weeks. He denied experiencing any dizziness, lightheadedness, falls or injuries, or any other complaints. He does have right-sided deficits from previous CVA with a right upper extremity contracture and walks with a cane. ED physician reports that staff at the foster care were contacted because the patient reportedly turned on the stove and walked away so he was sent here for evaluation. Patient underwent full evaluation in the emergency department.CBC revealed mild leukocytosis with WBC count of 14.4 and CMP unremarkable. Troponin was minimally elevated at 0.036. EKG normal sinus rhythm at 96 bpm with no noted T wave or ST abnormality showing no signs of acute ischemia upon personal review. CT head negative for acute intercranial process revealing a chronic right basal ganglia injury and scattered nonspecific white matter changes. 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 Urine drug screen negative and serum alcohol also negative. Patient admitted under our services to observation for overnight monitoring. Troponins trended and flat at 0.036, 0.037, and 0.032. Patient remained asymptomatic denying any chest pain, discomfort, shortness of breath, palpitations, cough or congestion, dizziness, lightheadedness, or any other complaints at this time. Patient remained alert and oriented to person, place, time, and situation. TSH 5.180 with free T4 of 1.44. Repeat WBC count improving down to 13.0. Patient ambulating in room and wagner with RN and reported to have a steady gait walking with cane unassisted. Patient is medically stable at this time and stable for discharge back to [facility]. No medication changes were made during this admission. Physical examination: General: non toxic, no distress, appears at stated age Derm: warm, dry Head: atraumatic, normocephalic, symmetric Eyes: EOMI, no lid lag, anicteric sclera Mouth: no lip lesion, mucus membranes moist Cardiovascular: S1S2 reg, no murmur, positive posterior tibial pulse bilateral, Lungs: CTA bilaterally, no rhonchi, no rales , no accessory muscle use Abdominal: soft, nontender to palpation, no guarding, no appreciable organomegaly Ext: Right arm contracted, no edema, right lower extremity weakness Neuro: CN II-X grossly intact Psych: Alert, oriented, appropriate affect A total of 31 minutes of time were spent preparing this complex discharge summary. Pt was discharged on 05/09/22 at 6 PM. Sp Wallace NP rendered care for this patient independently, reviewed the findings and plan as documented in the note above. I did not physically speak with our examined the patient on this date. Patient Condition at Discharge: Stable Plan - Discharge Summary Discharge Rx Participant: No New Discharge Prescriptions: Continue risperiDONE [RisperDAL] 1 mg PO BID Tamsulosin HCl [Flomax] 0.4 mg PO DAILY Sertraline HCl [Zoloft] 150 mg PO DAILY Hydrocortisone Cream [Hydrocortisone 2.5% Cream] 1 applic TOPICAL DAILY PRN PRN Reason: SKIN ISSUES Albuterol Nebulized [Ventolin Nebulized] 2.5 mg INHALATION RT-QID PRN PRN Reason: Shortness Of Breath Cholecalciferol [Vitamin D3 (25 Mcg = 1000 Iu)] 50 mcg PO DAILY Acetaminophen [Tylenol] 650 mg PO Q4H PRN PRN Reason: Pain Or Fever > 100.5 Sodium Chloride Tab 1 gm PO DAILY Saline 0.65% Nasal [place] 2 spray EA NOSTRIL TID PRN PRN Reason: DRY NOSE/ALLERGIES Potassium Chloride ER [K-Dur 20] 20 meq PO DAILY Petroleum Jelly 1 applic TOPICAL BID Losartan Potassium [Cozaar] 25 mg PO DAILY Levothyroxine Sodium [Synthroid] 137 mcg PO DAILY Docusate [Colace] 100 mg PO BID Clopidogrel [Plavix] 75 mg PO DAILY amLODIPine [Norvasc] 10 mg PO DAILY Nystatin 100,000Unit/gm Cream [Mycostatin Cream] 1 applic TOPICAL HS PRN PRN Reason: UNDER RIGHT AXILLA, RASH Ipratropium Nebulized [Atrovent Nebulized 0.2 MG/ML] 0.5 mg INHALATION RT-Q6H PRN PRN Reason: Shortness Of Breath guaiFENesin-DM 100-10MG/5ML [Robitussin DM] 5 - 10 ml PO Q6H PRN PRN Reason: Congestion Sennosides [Senokot] 8.6 mg PO BID PRN PRN Reason: Constipation Melatonin 9 mg PO HS Calcium Carbonate/Vitamin D3 [Calcium 500 mg-Vit D3 5 mcg (200 Unit)] 1 tab PO BID Loratadine 10 mg PO DAILY Discharge Medication List Sertraline HCl [Zoloft] 150 mg PO DAILY 11/26/16 [History] Tamsulosin HCl [Flomax] 0.4 mg PO DAILY 11/26/16 [History] risperiDONE [RisperDAL] 1 mg PO BID 11/26/16 [History] Acetaminophen [Tylenol] 650 mg PO Q4H PRN 05/09/22 [History] Albuterol Nebulized [Ventolin Nebulized] 2.5 mg INHALATION RT-QID PRN 05/09/22 [History] Calcium Carbonate/Vitamin D3 [Calcium 500 mg-Vit D3 5 mcg (200 Unit)] 1 tab PO BID 05/09/22 [History] Cholecalciferol [Vitamin D3 (25 Mcg = 1000 Iu)] 50 mcg PO DAILY 05/09/22 [History] Clopidogrel [Plavix] 75 mg PO DAILY 05/09/22 [History] Docusate [Colace] 100 mg PO BID 05/09/22 [History] Hydrocortisone Cream [Hydrocortisone 2.5% Cream] 1 applic TOPICAL DAILY PRN 05/09/22 [History] Ipratropium Nebulized [Atrovent Nebulized 0.2 MG/ML] 0.5 mg INHALATION RT-Q6H PRN 05/09/22 [History] Levothyroxine Sodium [Synthroid] 137 mcg PO DAILY 05/09/22 [History] Loratadine 10 mg PO DAILY 05/09/22 [History] Losartan Potassium [Cozaar] 25 mg PO DAILY 05/09/22 [History] Melatonin 9 mg PO HS 05/09/22 [History] Nystatin 100,000Unit/gm Cream [Mycostatin Cream] 1 applic TOPICAL HS PRN 05/09/22 [History] Petroleum Jelly 1 applic TOPICAL BID 05/09/22 [History] Potassium Chloride ER [K-Dur 20] 20 meq PO DAILY 05/09/22 [History] Saline 0.65% Nasal [place] 2 spray EA NOSTRIL TID PRN 05/09/22 [History] Sennosides [Senokot] 8.6 mg PO BID PRN 05/09/22 [History] Sodium Chloride Tab 1 gm PO DAILY 05/09/22 [History] amLODIPine [Norvasc] 10 mg PO DAILY 05/09/22 [History] guaiFENesin-DM 100-10MG/5ML [Robitussin DM] 5 - 10 ml PO Q6H PRN 05/09/22 [History] Follow up Appointment(s)/Referral(s): [facility],Clinic [Primary Care Provider] - 1-2 days Patient Instructions/Handouts: At-Risk Alcohol Use (DC), Altered Mental Status (ED) Activity/Diet/Wound Care/Special Instructions: Activity: As tolerated. Take breaks as needed. Diet: Heart healthy and carb consistent diet. Avoid salts, or foods with hidden salts such as canned or boxed foods and frozen dinners. Extra salt makes your heart w ork harder and traps the fluid in your body for longer. Special Instructions: Take all of your medications as directed and remember to keep all of your do ctor's appointments and follow-up as needed. Strongly recommending to Avoid any and all alcohol use. Thank you for allowing us to participate in your care, it was truly a pleasure having you for our patient!!! Discharge Disposition: HOME SELF-CARE
[2022-05-09] MEDS: risperiDONE 1 MG TAB PO SCH (22:06)
[2022-05-10] MEDS: HEPARIN SODIUM,PORCINE/PF 5,000 UNIT/0.5 ML SYRINGE SQ SCH ×3 (00:34→08:54)
[2022-05-10] MEDS: SODIUM CHLORIDE 0.9% 1,000 ML IV SCH ×2 (00:34→08:36)
[2022-05-10] MEDS: LEVOTHYROXINE 137 MCG TAB PO SCH (06:21)
[2022-05-10] MEDS: risperiDONE 1 MG TAB PO SCH ×2 (08:51→22:39)
[2022-05-10] MEDS: LOSARTAN 25 MG TAB PO SCH (08:51)
[2022-05-10] MEDS: SERTRALINE 50 MG TAB PO SCH (08:51)
[2022-05-10] MEDS: CLOPIDOGREL 75 MG TAB PO SCH (08:51)
[2022-05-10] MEDS: TAMSULOSIN 0.4 MG CAP.ER.24H PO SCH (08:51)
[2022-05-10] MEDS: SODIUM CHLORIDE TAB 1 GM TAB PO SCH (08:51)
[2022-05-10] MEDS: amLODIPine 10 MG TAB PO SCH (08:51)
--- NOTE | 2022-05-10 09:54 | P.DS ---
Providers Date of admission: 05/08/22 21:41 Expected date of discharge: 05/10/22 Attending physician: Anthony Flynn MD Primary care physician: [facility] Hospital Course: Discharge Diagnosis: Altered mental status with unsteady gait, resolved. Patient alert and oriented to person, time, place, and situation and free from any complaints, questions, or concerns. Workup negative. Patient stable for discharge back to [facility] at this time. Leukocytosis, improved. Likely due to stress or dehydration. No signs of infection. History of EtOH abuse, patient reports he hasn't used alcohol in almost 2 weeks but does drink when he can afford it. History of CVA with right-sided residual deficit, patient walks with cane. Ambulated in room and halls with a steady gait unassisted using cane. 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 Patient denies having any pain or complaints. Patient may follow-up with orthopedic surgery for evaluation on outpatient basis as needed if becomes symptomatic. Hospital Course: The patient is a 62-year-old male, resident of an adult fostercare home and resides at [facility] with a past medical history of previous EtOH abuse, CVA with residual right-sided deficits and hypothyroidism. He presented to the emergency department overnight with a chief complaint of confusion. The patient reportedly stated that over the past few months he has not quite been feeling like himself and believes he has been more unsteady resulting in difficulty with ambulation. Patient reports that he has not drank any alcohol in nearly 2 weeks. He denied experiencing any dizziness, lightheadedness, falls or injuries, or any other complaints. He does have right-sided deficits from previous CVA with a right upper extremity contracture and walks with a cane. ED physician reports that staff at the foster care were contacted because the patient reportedly turned on the stove and walked away so he was sent here for evaluation. Patient underwent full evaluation in the emergency department.CBC revealed mild leukocytosis with WBC count of 14.4 and CMP unremarkable. Troponin was minimally elevated at 0.036. EKG normal sinus rhythm at 96 bpm with no noted T wave or ST abnormality showing no signs of acute ischemia upon personal review. CT head negative for acute intercranial process revealing a chronic right basal ganglia injury and scattered nonspecific white matter changes. 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 Urine drug screen negative and serum alcohol also negative. Patient admitted under our services to observation for overnight monitoring. Troponins trended and flat at 0.036, 0.037, and 0.032. Patient remained asymptomatic denying any chest pain, discomfort, shortness of breath, palpitations, cough or congestion, dizziness, lightheadedness, or any other complaints at this time. Patient remained alert and oriented to person, place, time, and situation. TSH 5.180 with free T4 of 1.44. Repeat WBC count improving down to 13.0. Patient ambulating in room and wagner with RN and reported to have a steady gait walking with cane unassisted. Patient is medically stable at this time and stable for discharge back to [facility]. No medication changes were made during this admission. Patient initially discharged on 05/09/22 but nursing staff unable to get ahold of public guardian and therefore cannot discharge patient pending miscommunication. Patient is medically stable nursing staff again reaching out to public guardian today and once contacted patient to be discharged home back to [facility].. Physical examination: General: non toxic, no distress, appears at stated age Derm: warm, dry Head: atraumatic, normocephalic, symmetric Eyes: EOMI, no lid lag, anicteric sclera Mouth: no lip lesion, mucus membranes moist Cardiovascular: S1S2 reg, no murmur, positive posterior tibial pulse bilateral, Lungs: CTA bilaterally, no rhonchi, no rales , no accessory muscle use Abdominal: soft, nontender to palpation, no guarding, no appreciable organomegaly Ext: Right arm contracted, no edema, right lower extremity weakness Neuro: CN II-X grossly intact Psych: Alert, oriented, appropriate affect A total of 30 minutes of time were spent preparing this complex discharge summary. Pt was discharged on 05/10/22 at 9:50 AM Sp Wallace NP rendered care for this patient independently, reviewed the findings and plan as documented in the note above. I did not physically speak with or examine the patient on this date. Patient Condition at Discharge: Stable Plan - Discharge Summary Discharge Rx Participant: No New Discharge Prescriptions: Continue risperiDONE [RisperDAL] 1 mg PO BID Tamsulosin HCl [Flomax] 0.4 mg PO DAILY Sertraline HCl [Zoloft] 150 mg PO DAILY Hydrocortisone Cream [Hydrocortisone 2.5% Cream] 1 applic TOPICAL DAILY PRN PRN Reason: SKIN ISSUES Albuterol Nebulized [Ventolin Nebulized] 2.5 mg INHALATION RT-QID PRN PRN Reason: Shortness Of Breath Cholecalciferol [Vitamin D3 (25 Mcg = 1000 Iu)] 50 mcg PO DAILY Acetaminophen [Tylenol] 650 mg PO Q4H PRN PRN Reason: Pain Or Fever > 100.5 Sodium Chloride Tab 1 gm PO DAILY Saline 0.65% Nasal [place] 2 spray EA NOSTRIL TID PRN PRN Reason: DRY NOSE/ALLERGIES Potassium Chloride ER [K-Dur 20] 20 meq PO DAILY Petroleum Jelly 1 applic TOPICAL BID Losartan Potassium [Cozaar] 25 mg PO DAILY Levothyroxine Sodium [Synthroid] 137 mcg PO DAILY Docusate [Colace] 100 mg PO BID Clopidogrel [Plavix] 75 mg PO DAILY amLODIPine [Norvasc] 10 mg PO DAILY Nystatin 100,000Unit/gm Cream [Mycostatin Cream] 1 applic TOPICAL HS PRN PRN Reason: UNDER RIGHT AXILLA, RASH Ipratropium Nebulized [Atrovent Nebulized 0.2 MG/ML] 0.5 mg INHALATION RT-Q6H PRN PRN Reason: Shortness Of Breath guaiFENesin-DM 100-10MG/5ML [Robitussin DM] 5 - 10 ml PO Q6H PRN PRN Reason: Congestion Sennosides [Senokot] 8.6 mg PO BID PRN PRN Reason: Constipation Melatonin 9 mg PO HS Calcium Carbonate/Vitamin D3 [Calcium 500 mg-Vit D3 5 mcg (200 Unit)] 1 tab PO BID Loratadine 10 mg PO DAILY Discharge Medication List Sertraline HCl [Zoloft] 150 mg PO DAILY 11/26/16 [History] Tamsulosin HCl [Flomax] 0.4 mg PO DAILY 11/26/16 [History] risperiDONE [RisperDAL] 1 mg PO BID 11/26/16 [History] Acetaminophen [Tylenol] 650 mg PO Q4H PRN 05/09/22 [History] Albuterol Nebulized [Ventolin Nebulized] 2.5 mg INHALATION RT-QID PRN 05/09/22 [History] Calcium Carbonate/Vitamin D3 [Calcium 500 mg-Vit D3 5 mcg (200 Unit)] 1 tab PO BID 05/09/22 [History] Cholecalciferol [Vitamin D3 (25 Mcg = 1000 Iu)] 50 mcg PO DAILY 05/09/22 [History] Clopidogrel [Plavix] 75 mg PO DAILY 05/09/22 [History] Docusate [Colace] 100 mg PO BID 05/09/22 [History] Hydrocortisone Cream [Hydrocortisone 2.5% Cream] 1 applic TOPICAL DAILY PRN 05/09/22 [History] Ipratropium Nebulized [Atrovent Nebulized 0.2 MG/ML] 0.5 mg INHALATION RT-Q6H PRN 05/09/22 [History] Levothyroxine Sodium [Synthroid] 137 mcg PO DAILY 05/09/22 [History] Loratadine 10 mg PO DAILY 05/09/22 [History] Losartan Potassium [Cozaar] 25 mg PO DAILY 05/09/22 [History] Melatonin 9 mg PO HS 05/09/22 [History] Nystatin 100,000Unit/gm Cream [Mycostatin Cream] 1 applic TOPICAL HS PRN 05/09/22 [History] Petroleum Jelly 1 applic TOPICAL BID 05/09/22 [History] Potassium Chloride ER [K-Dur 20] 20 meq PO DAILY 05/09/22 [History] Saline 0.65% Nasal [place] 2 spray EA NOSTRIL TID PRN 05/09/22 [History] Sennosides [Senokot] 8.6 mg PO BID PRN 05/09/22 [History] Sodium Chloride Tab 1 gm PO DAILY 05/09/22 [History] amLODIPine [Norvasc] 10 mg PO DAILY 05/09/22 [History] guaiFENesin-DM 100-10MG/5ML [Robitussin DM] 5 - 10 ml PO Q6H PRN 05/09/22 [History] Follow up Appointment(s)/Referral(s): [facility],Clinic [Primary Care Provider] - 1-2 days Patient Instructions/Handouts: At-Risk Alcohol Use (DC), Altered Mental Status (ED) Activity/Diet/Wound Care/Special Instructions: Activity: As tolerated. Take breaks as needed. Diet: Heart healthy and carb consistent diet. Avoid salts, or foods with hidden salts such as canned or boxed foods and frozen dinners. Extra salt makes your heart work harder and traps the fluid in your body for longer. Special Instructions: Take all of your medications as directed and remember to keep all of your doctor's appointments and follow-up as needed. Strongly recommending to Avoid any and all alcohol use. Thank you for allowing us to participate in your care, it was truly a pleasure having you for our patient!!! Discharge Disposition: HOME SELF-CARE
[2022-05-11] MEDS: HEPARIN SODIUM,PORCINE/PF 5,000 UNIT/0.5 ML SYRINGE SQ SCH ×3 (01:28→08:07)
[2022-05-11] MEDS: SODIUM CHLORIDE 0.9% 1,000 ML IV SCH (04:30)
[2022-05-11] MEDS: LEVOTHYROXINE 137 MCG TAB PO SCH (06:05)
[2022-05-11] MEDS: LOSARTAN 25 MG TAB PO SCH (08:04)
[2022-05-11] MEDS: SODIUM CHLORIDE TAB 1 GM TAB PO SCH (08:04)
[2022-05-11] MEDS: risperiDONE 1 MG TAB PO SCH (08:04)
[2022-05-11] MEDS: TAMSULOSIN 0.4 MG CAP.ER.24H PO SCH (08:04)
[2022-05-11] MEDS: CLOPIDOGREL 75 MG TAB PO SCH (08:04)
[2022-05-11] MEDS: amLODIPine 10 MG TAB PO SCH (08:04)
[2022-05-11] MEDS: SERTRALINE 50 MG TAB PO SCH (08:04)
[2022-05-11 09:22] VITALS: BP 125/67; PULSE 77; RESP 20; TEMP 97.7
--- NOTE | 2022-05-11 10:35 | P.DS ---
Providers Date of admission: 05/08/22 21:41 Expected date of discharge: 05/11/22 Attending physician: Anthony Flynn MD Primary care physician: [facility] Hospital Course: Discharge Diagnosis: Altered mental status with unsteady gait, resolved. Patient alert and oriented to person, time, place, and situation and free from any complaints, questions, or concerns. Workup negative. Patient stable for discharge back to [facility] at this time. Leukocytosis, improved. Likely due to stress or dehydration. No signs of infection. History of EtOH abuse, patient reports he hasn't used alcohol in almost 2 weeks but does drink when he can afford it. History of CVA with right-sided residual deficit, patient walks with cane. Ambulated in room and halls with a steady gait unassisted using cane. 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 Patient denies having any pain or complaints. Patient may follow-up with orthopedic surgery for evaluation on outpatient basis as needed if becomes symptomatic. Hospital Course: The patient is a 62-year-old male, resident of an adult fostercare home and resides at [facility] with a past medical history of previous EtOH abuse, CVA with residual right-sided deficits and hypothyroidism. He presented to the emergency department overnight with a chief complaint of confusion. The patient reportedly stated that over the past few months he has not quite been feeling like himself and believes he has been more unsteady resulting in difficulty with ambulation. Patient reports that he has not drank any alcohol in nearly 2 weeks. He denied experiencing any dizziness, lightheadedness, falls or injuries, or any other complaints. He does have right-sided deficits from previous CVA with a right upper extremity contracture and walks with a cane. ED physician reports that staff at the foster care were contacted because the patient reportedly turned on the stove and walked away so he was sent here for evaluation. Patient underwent full evaluation in the emergency department.CBC revealed mild leukocytosis with WBC count of 14.4 and CMP unremarkable. Troponin was minimally elevated at 0.036. EKG normal sinus rhythm at 96 bpm with no noted T wave or ST abnormality showing no signs of acute ischemia upon personal review. CT head negative for acute intercranial process revealing a chronic right basal ganglia injury and scattered nonspecific white matter changes. 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 Urine drug screen negative and serum alcohol also negative. Patient admitted under our services to observation for overnight monitoring. Troponins trended and flat at 0.036, 0.037, and 0.032. Patient remained asymptomatic denying any chest pain, discomfort, shortness of breath, palpitations, cough or congestion, dizziness, lightheadedness, or any other complaints at this time. Patient remained alert and oriented to person, place, time, and situation. TSH 5.180 with free T4 of 1.44. Repeat WBC count improving down to 13.0. Patient ambulating in room and wagner with RN and reported to have a steady gait walking with cane unassisted. Patient is medically stable at this time and stable for discharge back to [facility]. No medication changes were made during this admission. Patient initially discharged on 05/09/22 but nursing staff unable to get ahold of public guardian and once public guardian was contacted they were unable to get a hold of staff at [facility] and patient had no access or keep to get into his apartment. Patient's guardian was contacted on 05/10/22 and [address] [facility] being notified this morning as patient remains medically stable and is stable to be discharged home back to [facility]. Physical examination: Patient seen and fully evaluated at bedside this morning. He denied having any complaints or pain at this time. Patient was updated on plans for discharge back to [facility]. General: non toxic, no distress, appears at stated age Derm: warm, dry Head: atraumatic, normocephalic, symmetric Eyes: EOMI, no lid lag, anicteric sclera Mouth: no lip lesion, mucus membranes moist Cardiovascular: S1S2 reg, no murmur, positive posterior tibial pulse bilateral, Lungs: CTA bilaterally, no rhonchi, no rales , no accessory muscle use Abdominal: soft, nontender to palpation, no guarding, no appreciable organomegaly Ext: Right arm contracted, no edema, right lower extremity weakness Neuro: CN II-X grossly intact Psych: Alert, oriented, appropriate affect A total of 30 minutes of time were spent preparing this complex discharge summary. Pt was discharged on 05/11/22 at 8:43 AM Sp Wallace NP rendered care for this patient independently, reviewed the findings and plan as documented in the note above. I did not physically speak with or examine the patient on this date. Patient Condition at Discharge: Stable Plan - Discharge Summary Discharge Rx Participant: No New Discharge Prescriptions: Continue risperiDONE [RisperDAL] 1 mg PO BID Tamsulosin HCl [Flomax] 0.4 mg PO DAILY Sertraline HCl [Zoloft] 150 mg PO DAILY Hydrocortisone Cream [Hydrocortisone 2.5% Cream] 1 applic TOPICAL DAILY PRN PRN Reason: SKIN ISSUES Albuterol Nebulized [Ventolin Nebulized] 2.5 mg INHALATION RT-QID PRN PRN Reason: Shortness Of Breath Cholecalciferol [Vitamin D3 (25 Mcg = 1000 Iu)] 50 mcg PO DAILY Acetaminophen [Tylenol] 650 mg PO Q4H PRN PRN Reason: Pain Or Fever > 100.5 Sodium Chloride Tab 1 gm PO DAILY Saline 0.65% Nasal [place] 2 spray EA NOSTRIL TID PRN PRN Reason: DRY NOSE/ALLERGIES Potassium Chloride ER [K-Dur 20] 20 meq PO DAILY Petroleum Jelly 1 applic TOPICAL BID Losartan Potassium [Cozaar] 25 mg PO DAILY Levothyroxine Sodium [Synthroid] 137 mcg PO DAILY Docusate [Colace] 100 mg PO BID Clopidogrel [Plavix] 75 mg PO DAILY amLODIPine [Norvasc] 10 mg PO DAILY Nystatin 100,000Unit/gm Cream [Mycostatin Cream] 1 applic TOPICAL HS PRN PRN Reason: UNDER RIGHT AXILLA, RASH Ipratropium Nebulized [Atrovent Nebulized 0.2 MG/ML] 0.5 mg INHALATION RT-Q6H PRN PRN Reason: Shortness Of Breath guaiFENesin-DM 100-10MG/5ML [Robitussin DM] 5 - 10 ml PO Q6H PRN PRN Reason: Congestion Sennosides [Senokot] 8.6 mg PO BID PRN PRN Reason: Constipation Melatonin 9 mg PO HS Calcium Carbonate/Vitamin D3 [Calcium 500 mg-Vit D3 5 mcg (200 Unit)] 1 tab PO BID Loratadine 10 mg PO DAILY Discharge Medication List Sertraline HCl [Zoloft] 150 mg PO DAILY 11/26/16 [History] Tamsulosin HCl [Flomax] 0.4 mg PO DAILY 11/26/16 [History] risperiDONE [RisperDAL] 1 mg PO BID 11/26/16 [History] Acetaminophen [Tylenol] 650 mg PO Q4H PRN 05/09/22 [History] Albuterol Nebulized [Ventolin Nebulized] 2.5 mg INHALATION RT-QID PRN 05/09/22 [History] Calcium Carbonate/Vitamin D3 [Calcium 500 mg-Vit D3 5 mcg (200 Unit)] 1 tab PO BID 05/09/22 [History] Cholecalciferol [Vitamin D3 (25 Mcg = 1000 Iu)] 50 mcg PO DAILY 05/09/22 [History] Clopidogrel [Plavix] 75 mg PO DAILY 05/09/22 [History] Docusate [Colace] 100 mg PO BID 05/09/22 [History] Hydrocortisone Cream [Hydrocortisone 2.5% Cream] 1 applic TOPICAL DAILY PRN 05/09/22 [History] Ipratropium Nebulized [Atrovent Nebulized 0.2 MG/ML] 0.5 mg INHALATION RT-Q6H PRN 05/09/22 [History] Levothyroxine Sodium [Synthroid] 137 mcg PO DAILY 05/09/22 [History] Loratadine 10 mg PO DAILY 05/09/22 [History] Losartan Potassium [Cozaar] 25 mg PO DAILY 05/09/22 [History] Melatonin 9 mg PO HS 05/09/22 [History] Nystatin 100,000Unit/gm Cream [Mycostatin Cream] 1 applic TOPICAL HS PRN 05/09/22 [History] Petroleum Jelly 1 applic TOPICAL BID 05/09/22 [History] Potassium Chloride ER [K-Dur 20] 20 meq PO DAILY 05/09/22 [History] Saline 0.65% Nasal [place] 2 spray EA NOSTRIL TID PRN 05/09/22 [History] Sennosides [Senokot] 8.6 mg PO BID PRN 05/09/22 [History] Sodium Chloride Tab 1 gm PO DAILY 05/09/22 [History] amLODIPine [Norvasc] 10 mg PO DAILY 05/09/22 [History] guaiFENesin-DM 100-10MG/5ML [Robitussin DM] 5 - 10 ml PO Q6H PRN 05/09/22 [History] Follow up Appointment(s)/Referral(s): [facility],Clinic [Primary Care Provider] - 06/12/22 3:00 pm Patient Instructions/Handouts: At-Risk Alcohol Use (DC), Altered Mental Status (ED) Activity/Diet/Wound Care/Special Instructions: Activity: As tolerated. Take breaks as needed. Diet: Heart healthy and carb consistent diet. Avoid salts, or foods with hidden salts such as canned or boxed foods and frozen dinners. Extra salt makes your heart work harder and traps the fluid in your body for longer. Special Instructions: Take all of your medications as directed and remember to keep all of your doctor's appointments and follow-up as needed. Strongly recommending to Avoid any and all alcohol use. Thank you for allowing us to participate in your care, it was truly a pleasure having you for our patient!!! Discharge Disposition: HOME SELF-CARE
== END 2022-05-11 10:39 | disposition home or self-care (01) | DRG 641 ==
LOC: EC 15:58 → OBSVTOIN 21:41 → 3SCARD 21:41 → INTOOBSV 21:41 → 4SSUR 05-09 10:36 → UNDODISOB 05-11 10:39
PROVIDERS: ADMIT Internal Medicine; ATTEND Internal Medicine
DX: E86.0 Dehydration (principal); I69.351 Hemiplegia and hemiparesis following cerebral infarction affecting right dominant side; R41.82 Altered mental status, unspecified; R26.81 Unsteadiness on feet; M21.721 Unequal limb length (acquired), right humerus; I10 Essential (primary) hypertension; D72.829 Elevated white blood cell count, unspecified; F17.210 Nicotine dependence, cigarettes, uncomplicated; E03.9 Hypothyroidism, unspecified; Z82.3 Family history of stroke; R77.8 Other specified abnormalities of plasma proteins; F10.10 Alcohol abuse, uncomplicated; I69.398 Other sequelae of cerebral infarction; Z79.890 Hormone replacement therapy; Z79.899 Other long term (current) drug therapy; Z79.02 Long term (current) use of antithrombotics/antiplatelets
CPT/HCPCS: 36415; 70450; 71046; 80053; 80306; 80320; 82140; 83735; 84439; 84443; 84484; 85025; 85027; 85610; 85730; 93005; 96360; 96361; 96372; 99285

== ENCOUNTER 2024-03-31 21:51 | Emergency (ER) | payer OTHER, MEDICARE ==
--- NOTE | 2024-03-31 22:44 | ED ---
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 (NotDetected) Urine Methadone Screen (NotDetected) Ur Barbiturates Screen (NotDetected) U Tricyclic Antidepress (NotDetected) Ur Phencyclidine Scrn (NotDetected) Ur Amphetamines Screen (NotDetected) U Methamphetamines Scrn (NotDetected) U Benzodiazepines Scrn (NotDetected) Urine Cocaine Screen (NotDetected) U Marijuana (THC) Screen (NotDetected) Serum Alcohol mg/dL SARS-CoV-2 (PCR) (Not Detectd) Disposition Time of Disposition: 09:22 <Horacio Schmitt - Last Filed: 04/07/24 09:18> Is patient prescribed a controlled substance at d/c from ED?: No <Horacio Ro - Last Filed: 04/07/24 21:06> <Kendrick Devlin - Last Filed: 04/13/24 04:34> Clinical Impression: Psychosis, Elevated troponin, GI bleed, Renal insufficiency, Hypothyroid, Altered mental status, Elevated troponin I level, Weakness Disposition: ADMITTED IP TO THIS HOSP Condition: Fair Referrals: [facility],Clinic [Primary Care Provider] - 1-2 days
[2024-03-31 23:00] LABS: Basophils % (A) 0 %; Eosinophils # (A) 0.1 k/uL (0-0.7); Eosinophils % (A) 1 %; HCT 40.7 % (39.0-53.0); HGB 13.9 gm/dL (13.0-17.5); Lymphocytes # (A) 1.7 k/uL (1.0-4.8); Lymphocytes % (A) 15 %; MCH 33.2 pg (25.0-35.0); MCHC 34.2 g/dL (31.0-37.0); Mean Platelet Volume 8.3; Monocytes # (A) 0.8 k/uL (0-1.0); Monocytes % (A) 8 %; Neutrophils # (A) 8.2 k/uL (1.3-7.7); Neutrophils % (A) 74 %; Platelet Count 250 k/uL (150-450); RDW 13.4 % (11.5-15.5)
[2024-03-31 23:21] LABS: African American GFR (CKD) 73 (>60 ml/min/1.73 sqM); Alcohol <10 mg/dL; Anion Gap 3 mmol/L; Blood Urea Nitrogen 19 mg/dL (9-20); Calcium 8.7 mg/dL (8.4-10.2); Carbon Dioxide 29 mmol/L (22-30); Chloride 100 mmol/L (98-107); Glucose 103 mg/dL (74-99); Non-African American GFR(CKD) 63 (>60 ml/min/1.73 sqM); Potassium 4.3 mmol/L (3.5-5.1); Sodium 132 mmol/L (137-145)
[2024-04-01] MEDS: LEVOTHYROXINE 137 MCG TAB PO STA (00:50)
[2024-04-01] MEDS: TAMSULOSIN 0.4 MG CAP.ER.24H PO STA (00:50)
[2024-04-01 03:14] LABS: Appearance,Urine Clear (Clear); Bilirubin,Urine Negative (Negative); Blood,Urine Negative (Negative); Color,Urine Colorless; Glucose,Urine (UA) Negative (Negative); Ketones,Urine Negative (Negative); Leukocyte Esterase,Urine Negative (Negative); Nitrite,Urine Negative (Negative); Protein,Urine Negative (Negative); Specific Gravity,Urine 1.006 (1.001-1.035); Urobilinogen,Urine <2.0 mg/dL (<2.0)
[2024-04-01 03:29] LABS: Amphetamine Screen,Urine Not Detected (NotDetected); Barbiturate Screen,Urine Not Detected (NotDetected); Benzodiazepines Screen,Urine Not Detected (NotDetected); Cocaine Screen,Urine Not Detected (NotDetected); Methadone Screen, Urine Not Detected (NotDetected); Opiate Screen,Urine Not Detected (NotDetected); Oxycodone Screen, Urine Not Detected (NotDetected); Phencyclidine Screen,Urine Not Detected (NotDetected); Tricyclic Antidepressant,Urine Not Detected (NotDetected); Urn Cannabinoid Scrn Not Detected (NotDetected)
[2024-04-01] MEDS: amLODIPine 10 MG TAB PO STA (20:51)
[2024-04-02] MEDS: LOSARTAN 25 MG TAB PO SCH (13:42)
[2024-04-02] MEDS: amLODIPine 10 MG TAB PO SCH (13:42)
[2024-04-02] MEDS: LEVOTHYROXINE 137 MCG TAB PO SCH (13:42)
[2024-04-02] MEDS: CLOPIDOGREL 75 MG TAB PO SCH (13:42)
[2024-04-02] MEDS: LEVOTHYROXINE 137 MCG TAB PO ONE (13:42)
[2024-04-02] MEDS: SERTRALINE 50 MG TAB PO SCH (13:42)
[2024-04-02] MEDS: SERTRALINE 100 MG TAB PO SCH (13:42)
[2024-04-02] MEDS: MELATONIN 3 MG TABLET PO SCH (21:03)
[2024-04-03] MEDS: LEVOTHYROXINE 137 MCG TAB PO SCH (06:16)
[2024-04-03] MEDS: risperiDONE 0.25 MG TAB PO SCH (06:58)
[2024-04-03] MEDS: TAMSULOSIN 0.4 MG CAP.ER.24H PO SCH (18:45)
[2024-04-03] MEDS: SODIUM CHLORIDE TAB 1 GM TAB PO SCH (20:22)
[2024-04-06] MEDS ORDERED: OLANZapine 10 MG VIAL IM PRN (13:24)
[2024-04-06] MEDS ORDERED: OLANZapine 2.5 MG TAB PO PRN (13:24)
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
[2024-04-06] MEDS: ARIPiprazole 5 MG TAB PO SCH (14:36)
[2024-04-06] MEDS: MIRTAZAPINE 15 MG TAB PO SCH (21:57)
[2024-04-07 05:03] VITALS: RESP 18
[2024-04-07] MEDS: SODIUM CHLORIDE 0.9% 1,000 ML IV STA ×2 (05:21→07:46)
[2024-04-07 05:23] LABS: Basophils # (A) 0.1 k/uL (0-0.2); Basophils % (A) 0 %; Eosinophils # (A) 0.2 k/uL (0-0.7); Eosinophils % (A) 2 %; HCT 42.3 % (39.0-53.0); Lymphocytes # (A) 3.3 k/uL (1.0-4.8); Lymphocytes % (A) 24 %; MCH 32.8 pg (25.0-35.0); MCV 99.3 fL (80.0-100.0); Mean Platelet Volume 8.7; Monocytes # (A) 0.9 k/uL (0-1.0); Monocytes % (A) 6 %; Neutrophils # (A) 8.9 k/uL (1.3-7.7); Neutrophils % (A) 65 %; Platelet Count 296 k/uL (150-450); RBC 4.25 m/uL (4.30-5.90); RDW 13.9 % (11.5-15.5); WBC 13.7 k/uL (3.8-10.6)
[2024-04-07 05:39] LABS: ALT 16 U/L (4-49); AST 26 U/L (17-59); African American GFR (CKD) 52 (>60 ml/min/1.73 sqM); Albumin 4.3 g/dL (3.5-5.0); Alkaline Phosphatase 107 U/L (38-126); Anion Gap 11 mmol/L; Blood Urea Nitrogen 65 mg/dL (9-20); Calcium 9.6 mg/dL (8.4-10.2); Carbon Dioxide 23 mmol/L (22-30); Chloride 101 mmol/L (98-107); Glucose 151 mg/dL (74-99); Non-African American GFR(CKD) 45 (>60 ml/min/1.73 sqM); Phosphorus 3.5 mg/dL (2.5-4.5); Potassium 3.5 mmol/L (3.5-5.1); Sodium 135 mmol/L (137-145); Total Bilirubin 0.6 mg/dL (0.2-1.3); Total Protein 7.3 g/dL (6.3-8.2)
[2024-04-07 06:27] LABS: NT-Pro-B-Type Natriuretic Pept 563 pg/mL
[2024-04-07 06:28] LABS: INR 1.1 (<1.2); Partial Thromboplastin Time 22.7 sec (22.0-30.0); Prothrombin Time 11.8 sec (10.0-12.5)
[2024-04-07 07:56] VITALS: BP 156/77; PULSE 67; TEMP 97.1
[2024-04-07] MEDS ORDERED: NITROGLYCERIN SL TABS 0.4 MG TAB SUBLINGUAL PRN (09:22)
[2024-04-07 10:42] LABS: HCT 34.2 % (39.0-53.0); HGB 11.6 gm/dL (13.0-17.5); MCH 33.6 pg (25.0-35.0); MCV 98.7 fL (80.0-100.0); Mean Platelet Volume 8.5; Platelet Count 225 k/uL (150-450); RBC 3.47 m/uL (4.30-5.90); RDW 13.8 % (11.5-15.5)
[2024-04-07 11:05] LABS: Appearance,Urine Clear (Clear); Bilirubin,Urine Negative (Negative); Blood,Urine Negative (Negative); Color,Urine Colorless; Glucose,Urine (UA) Negative (Negative); Ketones,Urine 1+ (Negative); Leukocyte Esterase,Urine Negative (Negative); Nitrite,Urine Negative (Negative); PH, Urine 5.5 (5.0-8.0); Protein,Urine Negative (Negative); Specific Gravity,Urine 1.014 (1.001-1.035); Urobilinogen,Urine <2.0 mg/dL (<2.0)
[2024-04-07] MEDS ORDERED: NITROGLYCERIN OINT 1 INCH/GM PACKET TOPICAL SCH (12:00)
== END 2024-04-07 10:28 | disposition other institution (70) ==
LOC: EC 21:51
DX: F23 Brief psychotic disorder (principal); E03.9 Hypothyroidism, unspecified; K92.2 Gastrointestinal hemorrhage, unspecified; N28.9 Disorder of kidney and ureter, unspecified; F39 Unspecified mood [affective] disorder; R79.89 Other specified abnormal findings of blood chemistry; F17.200 Nicotine dependence, unspecified, uncomplicated; Z11.52 Encounter for screening for COVID-19; Z86.73 Personal history of transient ischemic attack (TIA), and cerebral infarction without residual deficits; Z79.899 Other long term (current) drug therapy
CPT/HCPCS: 36415; 80048; 80053; 80306; 80320; 81003; 82075; 82272; 83735; 83880; 84100; 84439; 84443; 84484; 85025; 85027; 85610; 85730; 93005; 96360; 96361; 99285

== ENCOUNTER 2024-04-07 10:29 | Inpatient (IN) | payer OTHER, MEDICARE ==
[2024-04-07] MEDS ORDERED: NALOXONE 0.4 MG/ML 1 ML VIAL IV PRN (13:09)
[2024-04-07] MEDS ORDERED: LORazepam 2 MG/ML INJ IV PRN (13:09)
[2024-04-07] MEDS: amLODIPine 5 MG TAB PO SCH (13:15)
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
--- NOTE | 2024-04-07 14:08 | P.GSCN ---
History of Present Illness Consult date: 04/07/24 History of present illness: CHIEF COMPLAINT: Agitation HISTORY OF PRESENT ILLNESS: This is a 64-year-old male who presented to the hospital from the [facility] due to aggressive behavior and agitation. Patient has been in the ER for 6 days awaiting transfer to [facility] facility. However, he started to have black stools today stool for occult blood was positive. Hemoglobin did go down from 14-11.6. His Plavix has been discontinued. Nursing staff reports that patient has been noncompliant with medications and definitely has not taken the Plavix for about 6 days. Patient is confused but reports no abdominal pain. Denies any nausea or vomiting. He reports never having had an EGD or colonoscopy. Patient being seen by cardiology due to elevated troponin. PAST MEDICAL HISTORY: Hypertension, hypothyroidism, CVA PAST SURGICAL HISTORY: See below MEDICATIONS: See below ALLERGIES: See below SOCIAL HISTORY: No illicit drug use. REVIEW OF SYSTEMS: CONSTITUTIONAL: Denies fever or chills. HEENT: Denies blurred vision, vision changes, or eye pain. Denies hemoptysis CARDIOVASCULAR: Denies chest pain or pressure. RESPIRATORY: No shortness of breath. GASTROINTESTINAL: See HPI for pertinent findings HEMATOLOGIC: Denies bleeding disorders. GENITOURINARY: Denies any blood in urine or increased urinary frequency. SKIN: Denies pruitis. Denies rash. PHYSICAL EXAM: VITAL SIGNS: Reviewed GENERAL: Well-developed in no acute distress. HEENT: No sclera icterus. Extraocular movements grossly intact. Moist buccal mucosa. Head is atraumatic, normocephalic. No nasal drainage. ABDOMEN: Soft. Nondistended. Nontender NEUROLOGIC: Confused. Awake and alert orientated to name and year. LABORATORY DATA: WBC 13 Hgb 14 down to 11.6 platelets 225 Sodium 135 potassium 3.5 creatinine 1.57 TSH elevated at 70 Troponin elevated IMAGING: ASSESSMENT: 1. Acute GI bleed with melanotic stools 2. Elevated troponin 3. Agitation and aggressive behavior PLAN: -Patient scheduled for EGD and colonoscopy on Wednesday if medically stable -Continue to monitor hemoglobin -Continue to monitor for any signs or symptoms of bleeding -Continue Protonix IV twice a day -Continue to hold Plavix Physician Caster Investment Casting note has been reviewed by physician. Signing provider agrees with the documented findings, assessment, and plan of care. Past Medical History Past Medical History: Cancer, Hypertension Additional Past Medical History / Comment(s): Hypothyroidism History of Any Multi-Drug Resistant Organisms: None Reported Past Surgical History: No Surgical Hx Reported Past Psychological History: Anxiety, Depression Smoking Status: Current every day smoker Past Alcohol Use History: Abuse Past Drug Use History: None Reported - Past Family History Mother Family Medical History: CVA/TIA Medications and Allergies Home Medications Medication Instructions Recorded Confirmed Type Sertraline HCl [Zoloft] 100 mg PO DAILY 11/26/16 04/07/24 History Tamsulosin HCl [Flomax] 0.4 mg PO DAILY 11/26/16 04/07/24 History Cholecalciferol [Vitamin D3 (25 50 mcg PO DAILY 05/09/22 04/07/24 History Mcg = 1000 Iu)] Clopidogrel [Plavix] 75 mg PO DAILY 05/09/22 04/07/24 History Docusate [Colace] 100 mg PO BID 05/09/22 04/07/24 History Levothyroxine Sodium [Synthroid] 137 mcg PO DAILY 05/09/22 04/07/24 History Losartan Potassium [Cozaar] 25 mg PO DAILY 05/09/22 04/07/24 History Melatonin 9 mg PO HS 05/09/22 04/07/24 History Sodium Chloride Tab 1 gm PO DAILY 05/09/22 04/07/24 History amLODIPine [Norvasc] 10 mg PO DAILY 05/09/22 04/07/24 History Naloxone HCl [Narcan] 4 mg NASAL ONCE PRN 04/01/24 04/07/24 History Naloxone Hcl Injection Solution 0.4 mg SQ ONCE PRN 04/01/24 04/07/24 History 0.4mg/Ml Sertraline [Zoloft] 50 mg PO DAILY 04/01/24 04/07/24 History risperiDONE [RisperDAL] 0.5 mg PO DAILY@0700 04/01/24 04/07/24 History Allergies Allergy/AdvReac Type Severity Reaction Status Date / Time No Known Allergies Allergy Verified 04/02/24 15:46 Surgical - Exam Vital Signs Temp Pulse Resp BP Pulse Ox 97.7 F 86 18 178/72 95 04/07/24 10:46 04/07/24 10:46 04/07/24 10:46 04/07/24 10:46 04/07/24 10:46
[2024-04-07] MEDS: METOPROLOL TARTRATE 25 MG TAB PO SCH (14:10)
[2024-04-07] MEDS: amLODIPine 10 MG TAB PO SCH (14:11)
[2024-04-07] MEDS: SODIUM CHLORIDE 0.9% 1,000 ML IV SCH (14:40)
[2024-04-07] MEDS: LEVOTHYROXINE IVP 100 MCG/5 ML VIAL IV SCH (14:40)
[2024-04-07] MEDS ORDERED: OLANZapine 2.5 MG TAB PO PRN (14:47)
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
[2024-04-07] MEDS: ATORVASTATIN 40 MG TAB PO SCH (19:39)
[2024-04-07] MEDS: MIRTAZAPINE 15 MG TAB PO SCH (19:39)
[2024-04-07] MEDS: PANTOPRAZOLE 40 MG/10 ML VIAL IVP SCH (19:39)
[2024-04-08] MEDS: ACETAMINOPHEN TAB 325 MG TAB PO PRN (03:33)
[2024-04-08] MEDS: SERTRALINE 100 MG TAB PO SCH (09:15)
[2024-04-08] MEDS: ARIPiprazole 5 MG TAB PO SCH (09:15)
[2024-04-08] MEDS: TAMSULOSIN 0.4 MG CAP.ER.24H PO SCH (09:15)
[2024-04-08 10:02] LABS: Basophils % (A) 0 %; Eosinophils # (A) 0.1 k/uL (0-0.7); Eosinophils % (A) 2 %; HCT 34.5 % (39.0-53.0); HGB 11.8 gm/dL (13.0-17.5); Lymphocytes # (A) 1.5 k/uL (1.0-4.8); Lymphocytes % (A) 17 %; MCH 33.8 pg (25.0-35.0); MCHC 34.1 g/dL (31.0-37.0); MCV 99.1 fL (80.0-100.0); Monocytes # (A) 0.6 k/uL (0-1.0); Monocytes % (A) 6 %; Neutrophils # (A) 6.5 k/uL (1.3-7.7); Neutrophils % (A) 73 %; Platelet Count 214 k/uL (150-450); RBC 3.48 m/uL (4.30-5.90); RDW 13.5 % (11.5-15.5); WBC 8.9 k/uL (3.8-10.6)
[2024-04-08 10:12] LABS: Anion Gap 6 mmol/L; Blood Urea Nitrogen 46 mg/dL (9-20); Carbon Dioxide 27 mmol/L (22-30); Chloride 105 mmol/L (98-107); Glucose 97 mg/dL (74-99); Potassium 3.7 mmol/L (3.5-5.1); Sodium 138 mmol/L (137-145)
[2024-04-08 10:13] LABS: African American GFR (CKD) 84 (>60 ml/min/1.73 sqM); Calcium 8.6 mg/dL (8.4-10.2); Non-African American GFR(CKD) 73 (>60 ml/min/1.73 sqM)
--- NOTE | 2024-04-08 13:33 | P.PN ---
Subjective Progress Note Date: 04/08/24 Hospital Course: 64-year-old male with history of alcohol dependence, CVA with right-sided defi cits presenting from nursing facility with combative behavior. Patient also had melena. Patient also had slightly elevated creatinine, troponin, drop in hemoglobin from 14-11.6. General surgery, psychiatry, and cardiology consulted. EKG did not show any ischemic changes. Patient has been refusing medications as well as lab draws. Has a sitter at bedside. General surgery considering scoping on Wednesday. Subjective: Patient seen and examined at bedside. No acute events overnight. Sitter at bedside. Pertinent positives and negatives as discussed above, a complete review of systems was performed and all other systems are negative. Vitals Signs Reviewed. General: Nontoxic, no distress, appears at stated age Derm: Warm, dry Head: Atraumatic, normocephalic, symmetric Eyes: EOMI, no lid lag, anicteric sclera Mouth: No lip lesion, mucus membranes moist Cardiovascular: S1S2 reg, no murmur Lungs: CTA bilateral, no rhonchi, no rales, no accessory muscle use Abdominal: Soft, nontender to palpation, no guarding, no appreciable organomegaly Ext: No gross muscle atrophy, no edema, no contractures Neuro: CN II-XI grossly intact, no focal neuro deficits Psych: Alert, oriented x 2, appropriate affect, cooperative today Data Reviewed Today: Pertinent Labs: Hemoglobin 11.8, creatinine 1.07 Imaging: No new imaging Assessment and Plan: Active: Acute psychosis -Psychiatry following, patient on Abilify 5 daily, IV Ativan as needed, monitor for sedation, Zyprexa IM and p.o. as needed, temazepam as needed at night for insomnia, sertraline 100 daily, Remeron 15 nightly -Continue sitter at bedside -Will likely need [facility] psych at the time of discharge Acute GI bleed -Hemoglobin stable -No active bleeding -Protonix 40 IV twice daily -General Surgery following, pending colonoscopy and EGD on Wednesday Elevated troponin NSTEMI, type II Hypertension Dyslipidemia -No active chest pain -Cardiology following -Holding antiplatelet therapy and heparin due to acute GI bleed -Continue amlodipine 10 daily, metoprolol 25 twice daily -Atorvastatin 40 nightly Acute kidney injury History of BPH -Resolved -Continue normal saline 100 cc an hour -Continue Flomax 0.4 daily Hypothyroidism -Continue levothyroxine, currently on IV 50 mcg daily as patient is refusing medications DVT ppx: SCDs Code status: Full code Anticipated discharge place: Pending clinical course Anticipated discharge time: Pending clinical course Objective - Vital Signs Vital signs: Vital Signs Temp 97.8 F 04/08/24 08:00 Pulse 66 04/08/24 08:00 Resp 18 04/08/24 08:00 BP 152/79 04/08/24 08:00 Pulse Ox 96 04/08/24 08:00 FiO2 Intake & Output 04/07/24 04/08/24 04/08/24 18:59 06:59 18:59 Output Total 300 550 Balance -300 -550 Weight 72.575 kg 60.5 kg Output: Urine 300 550 Other: Voiding Method Urinal Urinal Urinal - Labs CBC & Chem 7: 04/08/24 09:48 04/08/24 09:48 Labs: Abnormal Lab Results - Last 24 Hours (Table) 04/08/24 04/08/24 Range/Units 09:48 09:48 RBC 3.48 L (4.30-5.90) m/uL Hgb 11.8 L (13.0-17.5) gm/dL Hct 34.5 L (39.0-53.0) % BUN 46 H (9-20) mg/dL
--- NOTE | 2024-04-08 13:49 | P.PN ---
Subjective Progress Note Date: 04/08/24 No acute events overnight. No abdominal pain nausea or vomiting. No hematemesis or melena. Tolerating clear liquid diet without issue. No fevers or chills. No shortness of breath or chest pain. Objective - Vital Signs Vital signs: Vital Signs Temp 97.8 F 04/08/24 08:00 Pulse 66 04/08/24 08:00 Resp 18 04/08/24 08:00 BP 152/79 04/08/24 08:00 Pulse Ox 96 04/08/24 08:00 FiO2 Intake & Output 04/07/24 04/08/24 04/08/24 18:59 06:59 18:59 Output Total 300 550 Balance -300 -550 Weight 72.575 kg 60.5 kg Output: Urine 300 550 Other: Voiding Method Urinal Urinal Urinal - Exam Gen: AxO, NAD Pulm: non-labored respirations Abd: soft, non-tender, non-distended. No guarding/rebound/rigidity Extrem: no edema seen - Labs CBC & Chem 7: 04/08/24 09:48 04/08/24 09:48 Labs: Abnormal Lab Results - Last 24 Hours (Table) 04/08/24 04/08/24 Range/Units 09:48 09:48 RBC 3.48 L (4.30-5.90) m/uL Hgb 11.8 L (13.0-17.5) gm/dL Hct 34.5 L (39.0-53.0) % BUN 46 H (9-20) mg/dL Assessment and Plan Assessment: Patient is a 64-year-old who presents with GI bleed. Plan: -CLD as tolerated, NPO at midnight on 04/09 -IVF hydration -IV PPI -Trend Hb; transfuse per primary -Plan for egd/c-scope if medically stable on 04/10 Juaquin Crystal M.D. General Surgery
--- NOTE | 2024-04-08 15:59 | CA ---
Transthoracic Echo Report Name: Arun Eagle Age: 64 Gender: M : 1960 Exam Date: 04/08/2024 07:54 Exam Location: [facility] Ht (in): 64 Wt (lb): 125 Ordering Physician: Shawnee Jimenez Attending/Referring Phys: [id number], Barbara Pediatric Nurse Practitioner Tabitha Be RDCS Procedure CPT: Indications: nstemi Cardiac Hx: Technical Quality: Contrast 1: Total Dose (mL): Contrast 2: Total Dose (mL): MEASUREMENTS (Male / Female) Normal Values 2D ECHO LV Diastolic Diameter PLAX 4.7 cm 4.2 - 5.9 / 3.9 - 5.3 cm LV Systolic Diameter PLAX 3.4 cm IVS Diastolic Thickness 1.0 cm 0.6 - 1.0 / 0.6 - 0.9 cm LVPW Diastolic Thickness 1.2 cm 0.6 - 1.0 / 0.6 - 0.9 cm LV Relative Wall Thickness 0.5 RV Internal Dim ED PLAX 2.6 cm LA Systolic Diameter LX 2.9 cm 3.0 - 4.0 / 2.7 - 3.8 cm LV Diastolic Volume MOD BP 65.5 cm??? 67 - 155 / 56 - 104 cm??? LV Systolic Volume MOD BP 30.3 cm??? 22 - 58 / 19 - 49 cm??? LV Ejection Fraction MOD BP 53.8 % >= 55 % LV Diastolic Volume MOD 4C 51.3 cm??? LV Systolic Volume MOD 4C 25.1 cm??? LV Ejection Fraction MOD 4C 51.1 % LV Diastolic Length 4C 6.1 cm LV Systolic Length 4C 6.7 cm LV Diastolic Volume MOD 2C 72.5 cm??? LV Systolic Volume MOD 2C 32.2 cm??? LV Ejection Fraction MOD 2C 55.5 % LV Diastolic Length 2C 7.2 cm LV Systolic Length 2C 7.7 cm LA Volume 31.9 cm??? 18 - 58 / 22 - 52 cm??? LA Volume Index 19.9 cm???/m??? 16 - 28 cm???/m??? M-MODE Aortic Root Diameter MM 3.1 cm AV Cusp Separation MM 2.2 cm DOPPLER AV Peak Velocity 143.2 cm/s AV Peak Gradient 8.2 mmHg MV Area PHT 2.7 cm??? Mitral E Point Velocity 70.9 cm/s Mitral A Point Velocity 95.3 cm/s Mitral E to A Ratio 0.7 MV Deceleration Time 279.2 ms FINDINGS Left Ventricle Left ventricular ejection fraction is estimated at 45-50 %. Left ventricular cavity size normal. Mildly decreased left ventricular ejection fraction. Distal anteroseptal and anteroapical hypokinesis. No obvious regional wall motion abnormalities. Right Ventricle Normal right ventricular size. Unable to estimate the right ventricular systolic pressure. Right Atrium Normal right atrial size. No right atrial thrombus or mass seen. Left Atrium Normal left atrial size. No left atrial thrombus or mass present. Mitral Valve Structurally normal mitral valve. No mitral stenosis, or prolapse.mild mitral regurgitation. Aortic Valve Trileaflet aortic valve. No aortic valve stenosis or regurgitation. Tricuspid Valve Structurally normal tricuspid valve. No tricuspid stenosis, regurgitation or prolapse. Pulmonic Valve Pulmonic valve not well visualized. No pulmonic regurgitation. Pericardium Smalll pericardial effusion Aorta Normal size aortic root and proximal ascending aorta. CONCLUSIONS 1. Mildly impaired left ventricle systolic function with segmental wall motion abnormality 2. Mild mitral regurgitation Previewed by: Dr. Maged Silva MD (Electronically Signed) Final Date: 08 April 2024 15:58
[2024-04-08] MEDS: TEMAZEPAM 15 MG CAP PO PRN (20:35)
[2024-04-09 07:49] LABS: Basophils % (A) 0 %; Eosinophils # (A) 0.1 k/uL (0-0.7); Eosinophils % (A) 2 %; HCT 32.3 % (39.0-53.0); HGB 10.8 gm/dL (13.0-17.5); Lymphocytes # (A) 1.6 k/uL (1.0-4.8); Lymphocytes % (A) 21 %; MCH 33.2 pg (25.0-35.0); MCHC 33.5 g/dL (31.0-37.0); MCV 99.2 fL (80.0-100.0); Macrocytosis Slight; Monocytes # (A) 0.4 k/uL (0-1.0); Monocytes % (A) 6 %; Neutrophils # (A) 5.2 k/uL (1.3-7.7); Neutrophils % (A) 70 %; Platelet Count 230 k/uL (150-450); RBC 3.26 m/uL (4.30-5.90); RDW 15.4 % (11.5-15.5); WBC 7.5 k/uL (3.8-10.6)
[2024-04-09 08:06] LABS: African American GFR (CKD) 74 (>60 ml/min/1.73 sqM); Anion Gap 3 mmol/L; Blood Urea Nitrogen 49 mg/dL (9-20); Calcium 8.9 mg/dL (8.4-10.2); Carbon Dioxide 29 mmol/L (22-30); Chloride 106 mmol/L (98-107); Glucose 134 mg/dL (74-99); Magnesium 1.7 mg/dL (1.6-2.3); Non-African American GFR(CKD) 64 (>60 ml/min/1.73 sqM); Potassium 3.5 mmol/L (3.5-5.1); Sodium 138 mmol/L (137-145)
[2024-04-09] MEDS ORDERED: PEG 3350 (236 GM/BTL) + LYTES 4,000 ML BOTTLE PO ONE (09:00)
--- NOTE | 2024-04-09 10:36 | P.PN ---
Subjective Progress Note Date: 04/09/24 Hospital Course: 64-year-old male with history of alcohol dependence, CVA with right-sided defi cits presenting from nursing facility with combative behavior. Patient also had melena. Patient also had slightly elevated creatinine, troponin, drop in hemoglobin from 14-11.6. General surgery, psychiatry, and cardiology consulted. EKG did not show any ischemic changes. Patient has been refusing medications as well as lab draws. Has a sitter at bedside. General surgery considering scoping on Wednesday. Subjective: Patient seen and examined at bedside. No acute events overnight. Sitter at bedside. Patient still refusing medications. Pertinent positives and negatives as discussed above, a complete review of systems was performed and all other systems are negative. Vitals Signs Reviewed. General: Nontoxic, no distress, appears at stated age Derm: Warm, dry Head: Atraumatic, normocephalic, symmetric Eyes: EOMI, no lid lag, anicteric sclera Mouth: No lip lesion, mucus membranes moist Cardiovascular: S1S2 reg, no murmur Lungs: CTA bilateral, no rhonchi, no rales, no accessory muscle use Abdominal: Soft, nontender to palpation, no guarding, no appreciable organomegaly Ext: No gross muscle atrophy, no edema, no contractures Neuro: CN II-XI grossly intact, no focal neuro deficits Psych: Alert, oriented x 2, appropriate affect, cooperative today Data Reviewed Today: Pertinent Labs: Hemoglobin 10.8, creatinine 1.18, magnesium 1.7 Imaging: No new imaging Assessment and Plan: Active: Acute psychosis -Psychiatry following, patient on Abilify 5 daily, IV Ativan as needed, monitor for sedation, Zyprexa IM and p.o. as needed, temazepam as needed at night for insomnia, sertraline 100 daily, Remeron 15 nightly -Continue sitter at bedside -Will likely need [facility] psych at the time of discharge Acute GI bleed -Hemoglobin slowly downtrending -No active bleeding noted -Protonix 40 IV twice daily -General Surgery following, pending colonoscopy and EGD on Wednesday -Patient refusing GoLytely Elevated troponin NSTEMI, type II Hypertension Dyslipidemia -No active chest pain -Cardiology following -Holding antiplatelet therapy and heparin due to acute GI bleed -Continue amlodipine 10 daily, metoprolol 25 twice daily -Atorvastatin 40 nightly Acute kidney injury, resolved History of BPH -Resolved -Discontinue normal saline -Continue Flomax 0.4 daily Hypothyroidism -Continue levothyroxine, currently on IV 50 mcg daily as patient is refusing medications If patient continues to refuse medications, may need to have further goals of care discussion with family. May need to manage medically. DVT ppx: SCDs Code status: Full code Anticipated discharge place: Pending clinical course Anticipated discharge time: Pending clinical course Objective - Vital Signs Vital signs: Vital Signs Temp 97.3 F L 04/09/24 08:00 Pulse 67 04/09/24 08:00 Resp 12 04/09/24 08:00 BP 130/81 04/09/24 08:00 Pulse Ox 96 04/09/24 08:00 FiO2 Intake & Output 04/08/24 04/09/24 04/09/24 18:59 06:59 18:59 Intake Total 120 Output Total 200 350 Balance -80 -350 Weight 60 kg Intake: Oral 120 Output: Urine 200 350 Other: Voiding Method Urinal Urinal # Voids 1 # Bowel Movements 1 - Labs CBC & Chem 7: 04/09/24 07:32 04/09/24 07:32 Labs: Abnormal Lab Results - Last 24 Hours (Table) 04/09/24 04/09/24 Range/Units 07:32 07:32 RBC 3.26 L (4.30-5.90) m/uL Hgb 10.8 L (13.0-17.5) gm/dL Hct 32.3 L (39.0-53.0) % BUN 49 H (9-20) mg/dL Glucose 134 H (74-99) mg/dL
--- NOTE | 2024-04-09 11:52 | P.PN ---
Subjective Progress Note Date: 04/09/24 Patient liberty stable. His hemoglobin is 10.8. On exam vital signs appear stable. Abdomen soft. We will plan for EGD in the a.m. Objective - Vital Signs Vital signs: Vital Signs Temp 97.3 F L 04/09/24 08:00 Pulse 67 04/09/24 08:00 Resp 12 04/09/24 08:00 BP 130/81 04/09/24 08:00 Pulse Ox 96 04/09/24 08:00 FiO2 Intake & Output 04/08/24 04/09/24 04/09/24 18:59 06:59 18:59 Intake Total 120 Output Total 200 350 0 Balance -80 -350 0 Weight 60 kg Intake: Oral 120 Output: Gastric Drainage 0 Urine 200 350 0 Stool 0 Urine/Stool Mix 0 Emesis 0 Oral Regurgitation 0 Other 0 Other: Voiding Method Urinal Urinal # Voids 1 0 # Bowel Movements 1 0 - Labs CBC & Chem 7: 04/09/24 07:32 04/09/24 07:32 Labs: Abnormal Lab Results - Last 24 Hours (Table) 04/09/24 04/09/24 Range/Units 07:32 07:32 RBC 3.26 L (4.30-5.90) m/uL Hgb 10.8 L (13.0-17.5) gm/dL Hct 32.3 L (39.0-53.0) % BUN 49 H (9-20) mg/dL Glucose 134 H (74-99) mg/dL
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
[2024-04-09] MEDS: PEG 3350 (236 GM/BTL) + LYTES 4,000 ML BOTTLE PO ONE (12:50)
--- NOTE | 2024-04-10 11:29 | P.PN ---
Subjective Progress Note Date: 04/10/24 SURGICAL PROGRESS NOTE CHIEF COMPLAINT: Melanotic stools HISTORY OF PRESENT ILLNESS: Per nursing staff patient no longer has had any black stools. He is lying in bed comfortably. He has a sitter at bedside. Patient refused EGD this morning. Patient refusing to answer questions at this time. Vital stable. Hemoglobin yesterday 10.8 PHYSICAL EXAM: VITAL SIGNS: Reviewed. GENERAL: no acute distress. ABDOMEN: Soft. Nondistended. Nontender. ASSESSMENT: 1. Acute GI bleed with melanotic stools 2. Elevated troponin 3. Agitation and aggressive behavior PLAN: -Patient refused EGD and colonoscopy -Continue IV Protonix -Continue to hold Plavix -Continue monitor for any signs or symptoms of bleeding Physician [employer] note has been reviewed by physician. Signing provider agrees with the documented findings, assessment, and plan of care. Objective - Vital Signs Vital signs: Vital Signs Temp 97.8 F 04/10/24 09:18 Pulse 66 04/10/24 09:18 Resp 16 04/10/24 09:18 BP 126/79 04/10/24 09:18 Pulse Ox 97 04/10/24 09:18 FiO2 Intake & Output 04/09/24 04/10/24 04/10/24 18:59 06:59 18:59 Intake Total 0 Output Total 0 400 Balance 0 -400 0 Intake: Oral 0 Output: Gastric Drainage 0 Urine 0 400 Stool 0 Urine/Stool Mix 0 Emesis 0 Oral Regurgitation 0 Other 0 Other: Voiding Method Urinal Urinal Urinal # Voids 1 1 # Bowel Movements 0 - Labs CBC & Chem 7: 04/09/24 07:32 04/09/24 07:32
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
[2024-04-11 06:16] LABS: Anisocytosis Slight; Basophils % (A) 0 %; Eosinophils # (A) 0.2 k/uL (0-0.7); Eosinophils % (A) 2 %; HCT 29.3 % (39.0-53.0); HGB 10.2 gm/dL (13.0-17.5); Lymphocytes # (A) 2.5 k/uL (1.0-4.8); Lymphocytes % (A) 31 %; MCH 35.2 pg (25.0-35.0); MCHC 34.7 g/dL (31.0-37.0); MCV 101.4 fL (80.0-100.0); Macrocytosis Slight; Monocytes # (A) 0.5 k/uL (0-1.0); Monocytes % (A) 6 %; Neutrophils # (A) 4.7 k/uL (1.3-7.7); Neutrophils % (A) 59 %; Platelet Count 245 k/uL (150-450); RBC 2.89 m/uL (4.30-5.90); RDW 17.1 % (11.5-15.5)
[2024-04-11 06:31] LABS: African American GFR (CKD) 70 (>60 ml/min/1.73 sqM); Anion Gap 5 mmol/L; Blood Urea Nitrogen 44 mg/dL (9-20); Calcium 8.8 mg/dL (8.4-10.2); Carbon Dioxide 32 mmol/L (22-30); Chloride 102 mmol/L (98-107); Glucose 114 mg/dL (74-99); Magnesium 1.8 mg/dL (1.6-2.3); Non-African American GFR(CKD) 61 (>60 ml/min/1.73 sqM); Potassium 3.5 mmol/L (3.5-5.1); Sodium 139 mmol/L (137-145)
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
--- NOTE | 2024-04-11 13:42 | P.PN ---
Subjective Progress Note Date: 04/11/24 SURGICAL PROGRESS NOTE CHIEF COMPLAINT: Melanotic stools HISTORY OF PRESENT ILLNESS: Per nurse patient has had no bowel movement yesterday or today. Patient lying in bed comfortably. Per nurse patient has poor oral intake. Patient had declined EGD and colonoscopy. Hemoglobin stable at 10.2 PHYSICAL EXAM: VITAL SIGNS: Reviewed. GENERAL: no acute distress. ABDOMEN: Soft. Nondistended. Nontender. ASSESSMENT: 1. Acute GI bleed with melanotic stools, now resolved 2. Elevated troponin 3. Agitation and aggressive behavior PLAN: -Patient refused EGD and colonoscopy -If patient changes his mind EGD and Colonoscopy can be completed by Dr. Richards on -Continue IV Protonix -Continue to hold Plavix -Continue monitor for any signs or symptoms of bleeding Physician Inventory Assistant note has been reviewed by physician. Signing provider agrees with the documented findings, assessment, and plan of care. Objective - Vital Signs Vital signs: Vital Signs Temp 97.8 F 04/10/24 09:18 Pulse 66 04/11/24 11:26 Resp 16 04/11/24 11:26 BP 146/74 04/11/24 11:26 Pulse Ox 96 04/11/24 11:26 FiO2 Intake & Output 04/10/24 04/11/24 04/11/24 18:59 06:59 18:59 Intake Total 0 Balance 0 Intake: Oral 0 Other: Voiding Method Urinal Urinal # Voids 0 # Bowel Movements 0 - Labs CBC & Chem 7: 04/11/24 05:31 04/11/24 05:31 Labs: Abnormal Lab Results - Last 24 Hours (Table) 04/11/24 04/11/24 Range/Units 05:31 05:31 RBC 2.89 L (4.30-5.90) m/uL Hgb 10.2 L (13.0-17.5) gm/dL Hct 29.3 L (39.0-53.0) % MCV 101.4 H (80.0-100.0) fL MCH 35.2 H (25.0-35.0) pg RDW 17.1 H (11.5-15.5) % Carbon Dioxide 32 H (22-30) mmol/L BUN 44 H (9-20) mg/dL Glucose 114 H (74-99) mg/dL
--- NOTE | 2024-04-11 14:22 | P.PN ---
Progress Note - Text Progress Note Date: 04/11/24 Interval history: Patient was seen today for psychiatric follow-up as requested by the primary t ariela. Nurse reports that patient continues to be fairly agitated irritable, he took the medications this morning however has been refusing medications previously. Evs Manager spoke with patient at the bedside, patient did appear to be fairly demanding very poor insight poor judgment poor frustration tolerance. He believes that he does not need to be in the hospital, does not need medications. He made several nonspecific loosely formed delusional statements about his condition and how he got to the hospital. Claims that his sleep is poor, appetite poor, states that he is hearing voices talking to him mainly at nighttime. Denies any visual hallucinations, denies any suicidal homicidal ideations intent or plan. MENTAL STATUS EXAM: General Appearance: Patient appears to be thin, balding, stated age is alert, irritable. Patient appears to have poor hygiene and grooming wearing hospital gown with fair eye contact. Behavior: Patient is irritable, demanding, frustrated Speech: Patient's speech is fluent and nonpressured. Irritable tone Mood/Affect: Patient reports their mood is "fine", affect is incongruent Suicidality/Homicidality: Denies Perceptions: Denies Though content/process: [place], demanding, loud at times Memory and concentration: AOX1-2, does not know today's date. Does not know the situation. Unwilling to cooperate with further cognitive exam Judgment and insight: Chronically poor IMPRESSIONS: Mood disorder unspecified, rule out secondary to CVA PLAN: -At this time patient DOES meet criteria for inpatient geriatric psychiatric admission -Patient DOES NOT have decision making capacity at this time and is unable to reason through and communicate/appreciate the risks, benefits and alternatives to treatment. -Delirium precautions recommended with patient including - avoiding use of narcotics and LAST MARKER sedatives, limit anticholinergic medications when possible, frequent re-orientation, minimize use of restraints, open window shades during the day and close them at night -Would recommend the following medication changes/additions: Zyprexa as needed for severe agitation. Continue with Zoloft 100 mg daily. Remeron 15 mg nightly for mood/sleep, Abilify 5 mg daily for mood stabilization -patient is eligible for transfer to a [facility] psych bed when available. -Communicated plan to patient's nurse -Will continue to follow along as needed -Please contact with any questions.
--- NOTE | 2024-04-12 10:48 | P.PN ---
Subjective Progress Note Date: 04/12/24 SURGICAL PROGRESS NOTE CHIEF COMPLAINT: Melanotic stools HISTORY OF PRESENT ILLNESS: Per nursing staff no blood reported in stools. Patient had declined EGD and colonoscopy. Hemoglobin stable at 10.2 as of yesterday. Patient followed by psychiatry. They are working on possible transfer to geriatric psych unit. PHYSICAL EXAM: VITAL SIGNS: Reviewed. GENERAL: no acute distress. ABDOMEN: Soft. Nondistended. Nontender. ASSESSMENT: 1. Acute GI bleed with melanotic stools, now resolved 2. Elevated troponin 3. Agitation and aggressive behavior PLAN: -Patient with no further bleeding. Hemoglobin stable. Patient can be discharged from surgical standpoint when medically cleared. -Patient refused EGD and colonoscopy -Continue Protonix -Continue to hold Plavix -Continue monitor for any signs or symptoms of bleeding Physician Segregator note has been reviewed by physician. Signing provider agrees with the documented findings, assessment, and plan of care. Objective - Vital Signs Vital signs: Vital Signs Temp 97.8 F 04/12/24 09:07 Pulse 65 04/12/24 09:07 Resp 16 04/12/24 09:07 BP 124/71 04/12/24 09:07 Pulse Ox 96 04/12/24 09:07 FiO2 Intake & Output 04/11/24 04/12/24 04/12/24 18:59 06:59 18:59 Intake Total 240 0 Balance 240 0 Weight 60.7 kg Intake: Oral 240 0 Other: Voiding Method Urinal - Labs CBC & Chem 7: 04/11/24 05:31 04/11/24 05:31
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
[2024-04-12 15:54] LABS: % Iron Saturation 19.11 (15.00-50.00)
[2024-04-13 07:26] LABS: Anisocytosis Slight; Basophils % (A) 0 %; Eosinophils # (A) 0.1 k/uL (0-0.7); Eosinophils % (A) 2 %; HCT 27.6 % (39.0-53.0); HGB 9.5 gm/dL (13.0-17.5); Lymphocytes # (A) 1.7 k/uL (1.0-4.8); Lymphocytes % (A) 22 %; MCH 34.5 pg (25.0-35.0); MCHC 34.5 g/dL (31.0-37.0); MCV 99.9 fL (80.0-100.0); Macrocytosis Slight; Mean Platelet Volume 9.4; Monocytes # (A) 0.5 k/uL (0-1.0); Monocytes % (A) 6 %; Neutrophils # (A) 5.4 k/uL (1.3-7.7); Neutrophils % (A) 69 %; Platelet Count 260 k/uL (150-450); RBC 2.76 m/uL (4.30-5.90); RDW 18.3 % (11.5-15.5); WBC 7.8 k/uL (3.8-10.6)
[2024-04-13 07:46] VITALS: BP 124/72; PULSE 62; RESP 16; TEMP 97.3
--- NOTE | 2024-04-13 12:36 | P.PN ---
Subjective Progress Note Date: 04/13/24 SURGICAL PROGRESS NOTE CHIEF COMPLAINT: Melanotic stools HISTORY OF PRESENT ILLNESS: Per nursing staff no blood reported in stools. Patient had declined EGD and colonoscopy. hgb 9.5. Patient followed by psychiatry. They are working on transfer to geriatric psych unit. PHYSICAL EXAM: VITAL SIGNS: Reviewed. GENERAL: no acute distress. ABDOMEN: Soft. Nondistended. Nontender. ASSESSMENT: 1. Acute GI bleed with melanotic stools, now resolved 2. Elevated troponin 3. Agitation and aggressive behavior PLAN: -Patient with no further bleeding. Patient can be discharged from [facility] when medically cleared. -Patient refused EGD and colonoscopy -Continue Protonix -Continue to hold Plavix -Continue monitor for any signs or symptoms of bleeding Physician Food Service Cashier note has been reviewed by physician. Signing provider agrees with the documented findings, assessment, and plan of care. Objective - Vital Signs Vital signs: Vital Signs Temp 97.3 F L 04/13/24 07:03 Pulse 62 04/13/24 07:03 Resp 16 04/13/24 07:03 BP 124/72 04/13/24 07:03 Pulse Ox 97 04/13/24 07:03 FiO2 Intake & Output 04/12/24 04/13/24 04/13/24 18:59 06:59 18:59 Intake Total 0 Balance 0 Weight 60.3 kg Intake: Oral 0 Other: Voiding Method Urinal Urinal - Labs CBC & Chem 7: 04/13/24 06:23 04/11/24 05:31 Labs: Abnormal Lab Results - Last 24 Hours (Table) 04/11/24 04/13/24 Range/Units 05:31 06:23 RBC 2.76 L (4.30-5.90) m/uL Hgb 9.5 L (13.0-17.5) gm/dL Hct 27.6 L (39.0-53.0) % RDW 18.3 H (11.5-15.5) % Iron 43 L (65-175) UG/DL TIBC 225 L (228-460) UG/DL Transferrin 161.0 L (204.0-354.0) mg/dL
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
[2024-04-13] MEDS: OLANZapine 10 MG VIAL IM PRN (15:26)
== END 2024-04-13 15:34 | DRG 377 ==
LOC: EC 10:29 → 3SCARD 10:30 → 4SSUR 04-13 06:34
PROVIDERS: ADMIT Student in an Organized Health Care Education/Training Program; ATTEND Internal Medicine
DX: K92.1 Melena (principal); I21.4 Non-ST elevation (NSTEMI) myocardial infarction; F23 Brief psychotic disorder; D62 Acute posthemorrhagic anemia; I69.351 Hemiplegia and hemiparesis following cerebral infarction affecting right dominant side; N17.9 Acute kidney failure, unspecified; E03.9 Hypothyroidism, unspecified; E78.5 Hyperlipidemia, unspecified; F17.210 Nicotine dependence, cigarettes, uncomplicated; F41.9 Anxiety disorder, unspecified; I10 Essential (primary) hypertension; N40.0 Benign prostatic hyperplasia without lower urinary tract symptoms; Z91.85 Personal history of military service; Z91.148 Patient's other noncompliance with medication regimen for other reason; F32.A Depression, unspecified; G47.00 Insomnia, unspecified; Z79.02 Long term (current) use of antithrombotics/antiplatelets; Z79.890 Hormone replacement therapy; Z79.899 Other long term (current) drug therapy
CPT/HCPCS: 80048; 82607; 82728; 83540; 83550; 83735; 85025; 93306; 99285

== ENCOUNTER 2024-10-25 14:43 | Emergency (ER) | payer OTHER, MEDICARE ==
[2024-10-25 14:59] VITALS: RESP 18
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
[2024-10-25 15:49] LABS: Basophils # (A) 0.03 10*3/uL (0.00-0.10); Basophils % (A) 0.3 %; Eosinophils # (A) 0.07 10*3/uL (0.04-0.35); Eosinophils % (A) 0.7 %; HCT 41.1 % (39.6-50.0); HGB 13.7 g/dL (13.0-17.0); Lymphocytes # (A) 1.33 10*3/uL (0.90-5.00); Lymphocytes % (A) 13.6 %; MCH 30.9 pg (27.0-32.0); MCHC 33.3 g/dL (32.0-37.0); MCV 92.6 fL (80.0-97.0); Mean Platelet Volume 11.1 fL (9.5-12.2); Monocytes # (A) 1.03 10*3/uL (0.20-1.00); Monocytes % (A) 10.5 %; Neutrophils # (A) 7.31 10*3/uL (1.80-7.70); Neutrophils % (A) 74.6 %; Platelet Count 225 10*3/uL (140-440); RBC 4.44 10*6/uL (4.40-5.60); RDW 15.9 % (11.5-14.5)
[2024-10-25 15:50] LABS: Anion Gap 7 mmol/L; Blood Urea Nitrogen 27 mg/dL (9-20); Carbon Dioxide 28 mmol/L (22-30); Chloride 104 mmol/L (98-107); Glucose 101 mg/dL (74-99); Potassium 4.6 mmol/L (3.5-5.1); Sodium 139 mmol/L (137-145)
[2024-10-25 15:51] LABS: ALT 19 U/L (4-49); AST 30 U/L (17-59); African American GFR (CKD) 67 (>60 ml/min/1.73 sqM); Albumin 4.2 g/dL (3.5-5.0); Alcohol <10 mg/dL; Alkaline Phosphatase 164 U/L (38-126); Non-African American GFR(CKD) 58 (>60 ml/min/1.73 sqM); Total Bilirubin 0.4 mg/dL (0.2-1.3); Total Protein 7.6 g/dL (6.3-8.2)
[2024-10-25 16:14] LABS: Amphetamine Screen,Urine Not Detected (NotDetected); Barbiturate Screen,Urine Not Detected (NotDetected); Benzodiazepines Screen,Urine Detected (NotDetected); Cocaine Screen,Urine Not Detected (NotDetected); Methadone Screen, Urine Not Detected (NotDetected); Opiate Screen,Urine Not Detected (NotDetected); Oxycodone Screen, Urine Not Detected (NotDetected); Phencyclidine Screen,Urine Not Detected (NotDetected); Tricyclic Antidepressant,Urine Not Detected (NotDetected); Urn Cannabinoid Scrn Not Detected (NotDetected)
[2024-10-25 23:29] VITALS: BP 151/84; PULSE 85; TEMP 97.9
[2024-10-26] MEDS ORDERED: OLANZapine 2.5 MG TAB PO SCH (14:30)
--- NOTE | 2024-10-26 14:32 | P.CN ---
Psychiatric Consult - . Consult date: 10/26/24 Consult:: 10/26/24 14:05 IDENTIFYING DATA: This patient is a 64-year-old male with a guardian, living at [facility] REASON FOR REFERRAL: Psychiatry was consulted for psych eval for negative CERT HISTORY OF PRESENT ILLNESS: The patient presented to the hospital for mental health evaluation. Per EPS, "Patient presented to [facility] r/t combative behaviors including yelling at staff and kicking carmen. Patient assessed in ER12 from [id number]. Patient appears to be calm and cooperative with assessment. Patient has fair hygiene and appropriate appearance wearing hospital safety gown. Patient verbalizes that he does not like where he is currently living "Yeah I got upset, they wouldn't let me use the telephone. Wouldn't you be upset if that happened to you". Patient observed to state that he thinks the staff are "bullies". Patient states "They line supply my way, and they don't let me move around anywhere". Patient voices frustration and states he does not want to return to [facility]. Patient expresses that he does not want to hurt himself or others, but expresses that he let out his frustration. Patient has had no behaviors since arrival in the ED. Patient denies suicidal and homicidal ideations. Patient observed to make some delusional statements to ER staff, however did not make any abnormal delusional statements to ghost writer during assessment. Patient denies hallucinations or paranoia. Patient verbalizes good appetite and improved sleep. Patient verbalizes to ghost writer that he knows his behavior was unacceptable, but verbalizes that his frustration was high. Patient appears apologenic for behaviors presented at [facility]. Patient has petition and clinical certificate completed from [facility], and therefore prior to discharge will require a negative clinical certificate by psychiatrist." Patient seen and evaluated in his room. He was A&Ox2, not location or month/date. He does state not liking where he stays, says he has been living at [facility] for the past 3 years. He states his ultimate plan is to move to [facility] with his friends however he was reminded of his public guardian to which he states he hopes to get rid of him as well. Patient otherwise presents appropriately, denying all safety concerns. At this time patient denies any suicidal or homicidal ideations, intent or plan. Patient denies any auditory, visual hallucinations and denies any paranoia or delusions. Patients admits to using nicotine daily. PAST PSYCHIATRIC HISTORY: Patient has a history of depression, anxiety. He is currently prescribed Zyprexa 2.5 mg 3 times daily, melatonin 9 mg at bedtime. Patient denies any previous psychiatric hospitalizations. Patient denies any psychiatric outpatient follow-up. He states seeing a psychiatrist previously. Patient denies any history of suicide attempts in the past. PAST MEDICAL HISTORY: Hypertension, hypothyroidism. ALLERGIES: as per EMR. CHEMICAL DEPENDENCY HISTORY: as per HPI. FAMILY PSYCHIATRIC/SUBSTANCE USE HISTORY: Denies SOCIAL HISTORY: Patient single and has no children. He completed some college and served in the [employer] for 5 years. He is currently on disability MENTAL STATUS EXAM: General Appearance: Patient appears to be stated age is alert, pleasant, and cooperative. Patient appears to have fair hygiene and grooming wearing hospital gown with fair eye contact. Behavior: Patient is calmly lying in bed without any agitated behavior. Speech: Patient's speech is fluent and nonpressured, soft tone. Mood/Affect: Patient reports their mood is "good", affect is congruent, constricted Suicidality/Homicidality: Patient denies having any suicidal or homicidal ideation intent or plan. Perceptions: Patient denies any visual hallucinations and denies any auditory hallucinations Though content/process: There is no evidence of any delusional thought content and thought process is linear and goal-directed. Memory and concentration: AOX2 Judgment and insight: Poor IMPRESSIONS: Unspecified neurocognitive disorder Unspecified mood disorder PLAN: -At this time patient DOES NOT meet criteria for inpatient psychiatric admission. Negative CERT completed and placed in chart -Would recommend the following medication changes/additions: Continue Zyprexa 2.5 mg 3 times daily, 1 dose given right now -Communicated plan to patient's nurse -Psychiatry will sign off at this time -Please contact with any questions. 10/26/24 14:29
== END 2024-10-26 15:52 | disposition home or self-care (01) ==
LOC: EC 14:43
DX: F43.23 Adjustment disorder with mixed anxiety and depressed mood (principal); F17.200 Nicotine dependence, unspecified, uncomplicated
CPT/HCPCS: 36415; 80053; 80306; 80320; 82075; 85025; 93005; 99284

== ENCOUNTER 2024-12-18 16:47 | Observation (INO) | payer OTHER, MEDICARE ==
--- NOTE | 2024-12-18 16:52 | ED ---
Psych HPI - General Stated Complaint: Mental health Time Seen by Provider: 12/18/24 16:49 Source: RN notes reviewed, old records reviewed Mode of arrival: EMS Limitations: altered mental status, physical limitation - History of Present Illness Initial Comments: This is a 64-year-old male acting inappropriately per staff at [facility]. Patient has not been taking medications was causing some havoc per staffing and was given ketamine per EMS currently unable to answer questions unsure baseline MD Complaint: altered mental status -: days(s) Associated Psychiatric Symptoms: none History of same: Yes Quality: constant Improves With: none, medication Context: other (Not taking medications) Associated Symptoms: denies other symptoms Treatments Prior to Arrival: placed on mental health hold - Related Data Home Medications Medication Instructions Recorded Confirmed Tamsulosin HCl [Flomax] 0.4 mg PO DAILY@0611/26/16 12/18/24 Cholecalciferol [Vitamin D3 (25 25 mcg PO DAILY@1400 05/09/22 12/18/24 Mcg = 1000 Iu)] Docusate [Colace] 100 mg PO BID@06,199905/09/22 12/18/24 Melatonin 9 mg PO HS@199905/09/22 12/18/24 amLODIPine [Norvasc] 10 mg PO DAILY@59905/09/22 12/18/24 Losartan [Cozaar] 25 mg PO DAILY@59910/25/24 12/18/24 ARIPiprazole [Abilify] 5 mg PO DAILY@59912/18/24 12/18/24 Acetaminophen [Tylenol 8 Hour] 650 mg PO BID PRN 12/18/24 12/18/24 Acetaminophen [Tylenol 8 Hour] 650 mg PO BID@599,199912/18/24 12/18/24 Atorvastatin [Lipitor] 40 mg PO HS@199912/18/24 12/18/24 Levothyroxine Sodium [Synthroid] 150 mcg PO DAILY@59912/18/24 12/18/24 Metoprolol Tartrate [Lopressor] 25 mg PO BID@0600,199912/18/24 12/18/24 OLANZapine [ZyPREXA] 7.5 mg PO DAILY@59912/18/24 12/18/24 Allergies Allergy/AdvReac Type Severity Reaction Status Date / Time No Known Allergies Allergy Verified 12/18/24 17:46 Review of Systems ROS Statement: Those systems with pertinent positive or pertinent negative responses have been documented in the HPI. ROS Other: All systems not noted in ROS Statement are negative. Past Medical History Past Medical History: Cancer, Hypertension Additional Past Medical History / Comment(s): Hypothyroidism History of Any Multi-Drug Resistant Organisms: None Reported Past Surgical History: No Surgical Hx Reported Past Psychological History: Anxiety, Depression Smoking Status: Current every day smoker Past Alcohol Use History: Abuse Past Drug Use History: None Reported - Past Family History Mother Family Medical History: CVA/TIA General Exam General appearance: alert, in no apparent distress Head exam: Present: atraumatic, normocephalic, normal inspection Eye exam: Present: normal appearance, PERRL, EOMI. Absent: scleral icterus, conjunctival injection, periorbital swelling ENT exam: Present: normal exam, mucous membranes moist Neck exam: Present: normal inspection. Absent: tenderness, meningismus, lymphadenopathy Respiratory exam: Present: normal lung sounds bilaterally. Absent: respiratory distress, wheezes, rales, rhonchi, stridor Cardiovascular Exam: Present: regular rate, normal rhythm, normal heart sounds. Absent: systolic murmur, diastolic murmur, rubs, gallop, clicks GI/Abdominal exam: Present: soft, normal bowel sounds. Absent: distended, tenderness, guarding, rebound, rigid Extremities exam: Present: normal inspection, full ROM, normal capillary refill. Absent: tenderness, pedal edema, joint swelling, calf tenderness Back exam: Present: normal inspection Neurological exam: Present: alert, oriented X3, CN II-XII intact Psychiatric exam: Present: normal affect, normal mood Skin exam: Present: warm, dry, intact, normal color. Absent: rash Course Vital Signs 12/18/24 12/18/24 12/18/24 16:55 18:00 19:00 Temperature 99.0 F Pulse Rate 50 L 66 68 Respiratory 18 18 18 Rate Blood Pressure 155/85 149/76 162/78 O2 Sat by Pulse 96 98 99 Oximetry - Reevaluation(s) Reevaluation #1: 12/18/24 17:27 Medical records reviewed Reevaluation #2: 12/18/24 19:54 Patient symptoms unchanged here in the ER Reevaluation #3: 12/18/24 19:54 Patient informed of results and questions answered Reevaluation #4: Was pt. sent in by a medical professional or institution ([facility], [facility], urgent care, hospital, or residential...) When possible be specific @ -no Did you speak to anyone other than the patient for history (EMS, parent, family, police, friend...)? What history was obtained from this source @ -no Did you review nursing and triage notes (agree or disagree)? Why? @ -agree Are old charts reviewed (outside hosp., previous admission, EMS record, old EKG, old radiological studies, urgent care reports/EKG's, residential records)? Report findings @ -yes Differential Diagnosis (chest pain, altered mental status, abdominal pain women, abdominal pain men, vaginal bleeding, weakness, fever, dyspnea, syncope, headache, dizziness, GI bleed, back pain, seizure, CVA, palpatations, mental health, musculoskeletal)? @ -prior EKG interpreted by me (3pts min.). @ -yes X-rays interpreted by me (1pt min.). @ -yes negative for acute disease CT interpreted by me (1pt min.). @ -no U/S interpreted by me (1pt. min.). @ -no What testing was considered but not performed or refused? (CT, X-rays, U/S, labs)? Why? @ -none What meds were considered but not given or refused? Why? @ -none Did you discuss the management of the patient with other professionals (professionals i.e. [facility], [facility]ATION [facility]NER, lab, RT, psych nurse, older adult social work specialist, dental laboratory supervisor, teacher, space operations officer, case therapist)? Give summary @ -no Was smoking cessation discussed for >3mins.? @ -no Was critical care preformed (if so, how long)? @ -no Were there social determinants of health that impacted care today? How? (Homelessness, low income, unemployed, alcoholism, drug addiction, transportation, low edu. Level, literacy, decrease access to med. care, group home, rehab)? @ -none Was there de-escalation of care discussed even if they declined (Discuss DNR or withdrawal of care, Hospice)? DNR status @ -no What co-morbidities impacted this encounter? (DM, HTN, Smoking, COPD, CAD, Cancer, CVA, ARF, Chemo, Hep., AIDS, mental health diagnosis, sleep apnea, morbid obesity)? @ -none Was patient admitted / discharged? Hospital course, mention meds given and route, prescriptions, significant lab abnormalities, going to OR and other pertinent info. @ - Undiagnosed new problem with uncertain prognosis? @ -no Drug Therapy requiring intensive monitoring for toxicity (Heparin, Nitro, Insulin, Cardizem)? @ -no Were any procedures done? @ -no Diagnosis/symptom? @ - Acute, or Chronic, or Acute on Chronic? @ -Acute Uncomplicated (without systemic symptoms) or Complicated (systemic symptoms)? @ -Complicated Side effects of treatment? @ -no Exacerbation, Progression, or Severe Exacerbation? @ -exacerbation Poses a threat to life or bodily function? How? (Chest pain, USA, MS, pneumonia, PE, COPD, DKA, ARF, appy, cholecystitis, CVA, Diverticulitis, Homicidal, Suicidal, threat to staff... and all critical care pts) @ -yes Reevaluation #5: Differential Altered Mental Status: Hypoglycemia, DKA, hypercapnia, ETOH, overdose, CO poisoning, trauma, myxedema coma, HTN encephalopathy, infection, encephalitis, psychosis, intercranial hemorrhage, hepatic encephalopathy, meningitis, CVA, this is not meant to be an all-inclusive list - Consultations Consultation #1: Spoke with [facility] who agrees to admit this patient Medical Decision Making - Medical Decision Making 64 male to the ER for evaluation of altered mental status will admit for evaluation of altered mental status possible need for psychiatric evaluation, patient remains sedated and altered throughout ER stay - Lab Data Result diagrams: 12/18/24 17:00 12/18/24 17:00 Lab Results 12/18/24 12/18/24 12/18/24 Range/Units 17:00 17:00 17:00 WBC 8.20 (4.50-10.00) 10*3/uL RBC 4.16 L (4.40-5.60) 10*6/uL Hgb 13.1 (13.0-17.0) g/dL Hct 39.6 (39.6-50.0) % MCV 95.2 (80.0-97.0) fL MCH 31.5 (27.0-32.0) pg MCHC 33.1 (32.0-37.0) g/dL Plt Count 226 (140-440) 10*3/uL MPV 11.5 (9.5-12.2) fL Immature Gran % (Auto) 0.7 % Neutrophils % 72.6 % Lymphocytes % 13.5 % Monocytes % 11.8 % Eosinophils % 1.2 % Basophils % 0.2 % Immature Gran # 0.06 H (0.00-0.04) 10*3/uL Neutrophils # 5.94 (1.80-7.70) 10*3/uL Lymphocytes # 1.11 (0.90-5.00) 10*3/uL Monocytes # 0.97 (0.20-1.00) 10*3/uL Eosinophils # 0.10 (0.04-0.35) 10*3/uL Basophils # 0.02 (0.00-0.10) 10*3/uL PT 10.2 (10.0-12.5) sec INR 0.9 (<1.2) APTT 24.9 (22.0-30.0) sec Sodium 140 (137-145) mmol/L Potassium 4.9 (3.5-5.1) mmol/L Chloride 105 (98-107) mmol/L Carbon Dioxide 26 (22-30) mmol/L Anion Gap 9 mmol/L BUN 41 H (9-20) mg/dL Creatinine 1.71 H (0.66-1.25) mg/dL Est GFR (CKD-EPI)AfAm 47 (>60 ml/min/1.73 sqM) Est GFR (CKD-EPI)NonAf 41 (>60 ml/min/1.73 sqM) Glucose 104 H (74-99) mg/dL Calcium 8.8 (8.4-10.2) mg/dL Phosphorus 3.5 (2.5-4.5) mg/dL Magnesium 1.9 (1.6-2.3) mg/dL Total Bilirubin 0.2 (0.2-1.3) mg/dL AST 32 (17-59) U/L ALT 32 (4-49) U/L Alkaline Phosphatase 134 H (38-126) U/L Ammonia (<30) umol/L Troponin I (0.000-0.034) ng/mL Total Protein 7.4 (6.3-8.2) g/dL Albumin 4.3 (3.5-5.0) g/dL Serum Alcohol <10 mg/dL 12/18/24 12/18/24 Range/Units 17:00 17:00 WBC (4.50-10.00) 10*3/uL RBC (4.40-5.60) 10*6/uL Hgb (13.0-17.0) g/dL Hct (39.6-50.0) % MCV (80.0-97.0) fL MCH (27.0-32.0) pg MCHC (32.0-37.0) g/dL Plt Count (140-440) 10*3/uL MPV (9.5-12.2) fL Immature Gran % (Auto) % Neutrophils % % Lymphocytes % % Monocytes % % Eosinophils % % Basophils % % Immature Gran # (0.00-0.04) 10*3/uL Neutrophils # (1.80-7.70) 10*3/uL Lymphocytes # (0.90-5.00) 10*3/uL Monocytes # (0.20-1.00) 10*3/uL Eosinophils # (0.04-0.35) 10*3/uL Basophils # (0.00-0.10) 10*3/uL PT (10.0-12.5) sec INR (<1.2) APTT (22.0-30.0) sec Sodium (137-145) mmol/L Potassium (3.5-5.1) mmol/L Chloride (98-107) mmol/L Carbon Dioxide (22-30) mmol/L Anion Gap mmol/L BUN (9-20) mg/dL Creatinine (0.66-1.25) mg/dL Est GFR (CKD-EPI)AfAm (>60 ml/min/1.73 sqM) Est GFR (CKD-EPI)NonAf (>60 ml/min/1.73 sqM) Glucose (74-99) mg/dL Calcium (8.4-10.2) mg/dL Phosphorus (2.5-4.5) mg/dL Magnesium (1.6-2.3) mg/dL Total Bilirubin (0.2-1.3) mg/dL AST (17-59) U/L ALT (4-49) U/L Alkaline Phosphatase (38-126) U/L Ammonia 15 (<30) umol/L Troponin I 0.019 (0.000-0.034) ng/mL Total Protein (6.3-8.2) g/dL Albumin (3.5-5.0) g/dL Serum Alcohol mg/dL - EKG Data -: EKG Interpreted by Me (EKG is sinus 73 SC 160 QRS 98 QTc 404) - Radiology Data Radiology results: report reviewed (CT brain is negative for acute disease), image reviewed Disposition Clinical Impression: Altered mental status, Depression, Adjustment reaction of adult life, Personality disorder Disposition: ADMITTED IP TO THIS HOSP Condition: Fair Is patient prescribed a controlled substance at d/c from ED?: No Referrals: Laura Burroughs DO [Primary Care Provider] - 1-2 days Time of Disposition: 20:00
[2024-12-18 17:32] LABS: Basophils # (A) 0.02 10*3/uL (0.00-0.10); Basophils % (A) 0.2 %; Eosinophils # (A) 0.10 10*3/uL (0.04-0.35); Eosinophils % (A) 1.2 %; HCT 39.6 % (39.6-50.0); HGB 13.1 g/dL (13.0-17.0); Lymphocytes # (A) 1.11 10*3/uL (0.90-5.00); Lymphocytes % (A) 13.5 %; MCH 31.5 pg (27.0-32.0); MCHC 33.1 g/dL (32.0-37.0); MCV 95.2 fL (80.0-97.0); Monocytes # (A) 0.97 10*3/uL (0.20-1.00); Monocytes % (A) 11.8 %; Neutrophils # (A) 5.94 10*3/uL (1.80-7.70); Neutrophils % (A) 72.6 %; Platelet Count 226 10*3/uL (140-440); RBC 4.16 10*6/uL (4.40-5.60); RDW 14.2 % (11.5-14.5); WBC 8.20 10*3/uL (4.50-10.00)
[2024-12-18] MEDS: SODIUM CHLORIDE 0.9% 1,000 ML IV ONE (17:39)
[2024-12-18] MEDS: LORazepam 1 MG/0.5 ML VIAL IV STA (17:40)
[2024-12-18 17:44] LABS: INR 0.9 (<1.2); Partial Thromboplastin Time 24.9 sec (22.0-30.0); Prothrombin Time 10.2 sec (10.0-12.5)
[2024-12-18 17:49] LABS: ALT 32 U/L (4-49); AST 32 U/L (17-59); African American GFR (CKD) 47 (>60 ml/min/1.73 sqM); Albumin 4.3 g/dL (3.5-5.0); Alkaline Phosphatase 134 U/L (38-126); Anion Gap 9 mmol/L; Blood Urea Nitrogen 41 mg/dL (9-20); Calcium 8.8 mg/dL (8.4-10.2); Carbon Dioxide 26 mmol/L (22-30); Chloride 105 mmol/L (98-107); Glucose 104 mg/dL (74-99); Magnesium 1.9 mg/dL (1.6-2.3); Non-African American GFR(CKD) 41 (>60 ml/min/1.73 sqM); Potassium 4.9 mmol/L (3.5-5.1); Sodium 140 mmol/L (137-145); Total Protein 7.4 g/dL (6.3-8.2)
--- NOTE | 2024-12-18 18:04 | CT ---
EXAMINATION TYPE: CT brain wo con CT DLP: 1125.4 mGycm, Automated exposure control for dose reduction was used. DATE OF EXAM: 12/18/2024 5:57 PM COMPARISON: CT brain 05/08/2022, CT Brain and cspine facial bones 01/12/2017 CLINICAL INDICATION:Male, 64 years old with history of Altered mental status, altered mental status TECHNIQUE: Brain: Multiple axial CT images of the brain were obtained without IV contrast. . Coronal and sagitta l reformats reviewed. FINDINGS: Brain: Extra-axial spaces: No abnormal extra-axial fluid collections. Ventricular system: Within normal limits Cerebral parenchyma: No acute intraparenchymal hemorrhage or mass effect. The pham-white junction is well differentiated. Scattered hypoattenuating areas are seen within the periventricular and subcort ical white matter. Remote lacunar injury within the right basal ganglia lentiform nucleus extending into the right anterior internal capsule. Cerebellum: Unremarkable. Mass effect: No evidence of midline shift. Intracranial vasculature: Atherosclerotic calcifications of the intracranial vessels. Soft tissues: Normal. Calvarium/osseous structures: No depressed skull fracture. Paranasal sinuses and mastoid air cells: Mild mucosal thickening in the ethmoid sinuses. The remainin g paranasal sinuses are clear. Aplasia of the right frontal sinus. The mastoid air cells are clear. Visualized orbits: Bilateral aphakia IMPRESSION: 1. No acute intracranial process. 2. Remote lacunar injury along with nonspecific white matter changes likely secondary to chronic micr oangiopathy. [facility], , 12/18/2024 6:01 PM
[2024-12-18] MEDS ORDERED: NALOXONE 0.4 MG/ML 1 ML VIAL IV PRN (19:52)
[2024-12-18] MEDS ORDERED: ONDANSETRON 4 MG/2 ML VIAL IVP PRN (19:52)
[2024-12-18] MEDS: DEXTROSE 5%-0.45% NACL 1,000 ML IV SCH (20:10)
[2024-12-18 20:59] LABS: T4, Free (Free Thyroxine) 0.81 ng/dL (0.78-2.19)
[2024-12-19] MEDS ORDERED: ACETAMINOPHEN TAB 325 MG TAB PO PRN (00:10)
[2024-12-19] MEDS: METOPROLOL TARTRATE 25 MG TAB PO SCH (00:54)
[2024-12-19] MEDS: DOCUSATE 100 MG CAP PO SCH (00:54)
[2024-12-19] MEDS: ATORVASTATIN 40 MG TAB PO SCH (00:54)
[2024-12-19] MEDS: MELATONIN 3 MG TABLET PO SCH (00:55)
[2024-12-19 05:42] LABS: Bilirubin,Urine Negative (Negative); Blood,Urine Negative (Negative); Color,Urine Colorless; Glucose,Urine (UA) Negative (Negative); Ketones,Urine Negative (Negative); Leukocyte Esterase,Urine Negative (Negative); Nitrite,Urine Negative (Negative); PH, Urine 6.0 (5.0-8.0); Protein,Urine Trace (Negative); Specific Gravity,Urine 1.016 (1.001-1.035); Urobilinogen,Urine <2.0 mg/dL (<2.0)
[2024-12-19 07:02] LABS: Barbiturate Screen,Urine Not Detected (NotDetected); Benzodiazepines Screen,Urine Detected (NotDetected); Opiate Screen,Urine Not Detected (NotDetected); Oxycodone Screen, Urine Not Detected (NotDetected); Phencyclidine Screen,Urine Not Detected (NotDetected); Tricyclic Antidepressant,Urine Not Detected (NotDetected); Urn Cannabinoid Scrn Not Detected (NotDetected)
[2024-12-19 08:24] LABS: BUN/Creat Ratio 25.08 Ratio (12.00-20.00); Blood Urea Nitrogen 32.6 mg/dL (9.0-27.0); Chloride 104 mmol/L (96-109); Glucose 156 mg/dL (70-110); Magnesium 1.9 mg/dL (1.5-2.4); Potassium 4.0 mmol/L (3.5-5.5); Sodium 141 mmol/L (135-145)
[2024-12-19 08:25] LABS: ALT 30 U/L (10-49); AST 31 U/L (14-35); Albumin 3.8 g/dL (3.8-4.9); Albumin/Globulin Ratio 1.52 Ratio (1.60-3.17); Alkaline Phosphatase 136 U/L (41-126); Anion Gap 10.00 mmol/L (4.00-12.00); Calcium 8.7 mg/dL (8.7-10.3); Carbon Dioxide 27.0 mmol/L (21.6-31.8); Globulin 2.5 g/dL (1.6-3.3); Total Protein 6.3 g/dL (6.2-8.2)
[2024-12-19 09:48] LABS: Basophils # (A) 0.04 X 10*3/uL (0.00-0.10); Basophils % (A) 0.4 %; Eosinophils # (A) 0.21 X 10*3/uL (0.04-0.35); Eosinophils % (A) 2.3 %; HCT 37.3 % (39.6-50.0); HGB 12.2 g/dL (13.0-17.0); Immature Grans, Automated 0.30 %; Lymphocytes # (A) 2.36 X 10*3/uL (0.90-5.00); Lymphocytes % (A) 26.2 %; MCH 31.7 pg (27.0-32.0); MCHC 32.7 g/dL (32.0-37.0); MCV 96.9 FL (80.0-97.0); Monocytes # (A) 0.97 X 10*3/uL (0.20-1.00); Monocytes % (A) 10.8 %; NRBC Per 100 WBC 0 X 10*3/uL (0.00-0.01); Neutrophils # (A) 5.39 X 10*3/uL (1.80-7.70); Neutrophils % (A) 60.0 %; Platelet Count 210 X 10*3/uL (140-440); RBC 3.85 X 10*6/uL (4.40-5.60); RDW 14.5 % (11.5-14.5); WBC 9.00 X 10*3/uL (4.50-10.00)
--- NOTE | 2024-12-19 14:22 | P.CN ---
Psychiatric Consult - . Consult date: 12/19/24 Consult:: 12/19/24 13:18 IDENTIFYING DATA: This patient is a 64-year-old male with a guardian, living at [facility] REASON FOR REFERRAL: Psychiatry was consulted for altered mental status HISTORY OF PRESENT ILLNESS: The patient presented to the hospital yesterday was evaluated in the ER apparently was having inappropriate aggressive behavior at the facility that he was coming from, was not taking medications. Patient had a CAT scan which was negative. Patient was seen at the bedside agreeable to speak to race and sports book writer. He was mildly irritable however for the most part cooperative. He knew his name and age date of knew his location and the date. He was able to recall 0 out of 3 words after 5 minutes. He denied any issues with his mood, denies any anxiety at this time. Denies any current stressors however was fairly upset about his previous living situation. Claims that at the facility they were "lying to me" telling him that he was going to be discharged and moved to a different place. He states that he believes people and there were "selling drugs". He did not trust him at all and did not get along with other people there. He claims that he really wanted to leave and does not like it there therefore he was acting out and aggressive causing property destruction. Patient denies any paranoia at this time, claims that his sleep and appetite are fair. He has very limited insight and judgment and this appears to be chronic. We spoke about treatment options and medications claims that he is willing to try different medications at this time. We also spoke about potentially transitioning onto long-acting injection to help ensure compliance and more stability and he was okay with this. At this time patient denies any suicidal or homicidal ideations, intent or plan. Patient denies any auditory, visual hallucinations and denies any paranoia or delusions. Patients admits to using nicotine daily. PAST PSYCHIATRIC HISTORY: Patient has a history of depression, anxiety. He is currently prescribed Zyprexa, melatonin 9 mg at bedtime and also Abilify. Patient denies any previous psychiatric hospitalizations. Patient denies any psychiatric outpatient follow-up. He states seeing a psychiatrist previously. Patient denies any history of suicide attempts in the past. PAST MEDICAL HISTORY: Hypertension, hypothyroidism. ALLERGIES: as per EMR. CHEMICAL DEPENDENCY HISTORY: as per HPI. FAMILY PSYCHIATRIC/SUBSTANCE USE HISTORY: Denies SOCIAL HISTORY: Patient single and has no children. He completed some college and served in the [employer] for 5 years. He is currently on disability he is currently living at [facility] MENTAL STATUS EXAM: General Appearance: Patient appears to be thin, older than, stated age is alert, mildly irritable is cooperative. Patient appears to have fair hygiene and grooming wearing hospital gown with fair eye contact. Behavior: Patient is calmly lying in bed without any agitated behavior. Mildly irritable Speech: Patient's speech is fluent and nonpressured, soft tone. Mood/Affect: Patient reports their mood is "ok", affect is congruent, constricted Suicidality/Homicidality: Patient denies having any suicidal or homicidal ideation intent or plan. Perceptions: Patient denies any visual hallucinations and denies any auditory hallucinations Though content/process: There is no evidence of any delusional thought content and thought process is linear and goal-directed. Focused on the previous facility and people "lying to me". Memory and concentration: AOX2 Judgment and insight: Chronically poor/limited/impulsive IMPRESSIONS: Unspecified neurocognitive disorder Unspecified mood disorder PLAN: -At this time patient DOES NOT meet criteria for inpatient psychiatric admission however psychiatry will continue to follow along. -Would recommend the following medication changes/additions: Discontinue Abilify and Zyprexa, replaced with Risperdal 1 mg twice daily, plan to increase as tolerated/needed. Patient is agreeable to be transition onto long-acting in jection to help ensure compliance and to debility. Melatonin 9 mg nightly for sleep. Zoloft 50 mg daily for mood/anxiety -Communicated plan to patient's nurse -Psychiatry will continue to follow along. -gathering worker/behavioral health case manager came to placement options. -Please contact with any questions. 12/19/24 14:15 12/19/24 14:19
[2024-12-19] MEDS: SERTRALINE 25 MG TAB PO SCH (16:27)
[2024-12-19] MEDS: risperiDONE ODT 1 MG TAB PO SCH (16:27)
--- NOTE | 2024-12-19 19:20 | P.HPIM ---
History of Present Illness H&P Date: 12/19/24 Patient is a 64-year-old male with a past medical history of hypertension, alcohol abuse, and cancer was sent to the ED by the extended care facility for wreaking havoc and aggressive behavior - was given ketamine by EMS on the way to the ED. On examination patient seems very pleasant and explains he was getting very angry at another co-resident of [facility]. Imaging: CT brain negative for any acute intracranial process Labs: Hgb 12.2, creatinine 1.3, BUN 32.6, trace urine protein, positive for benzodiazepine, TSH 45.6, free T4 0.81. Vitals: Temperature 97.9, pulse 57, blood pressure 124/63, 94% on room air ED documentation reviewed and case discussed with ED provider. Review of systems: Pertinent positives and negatives as discussed in HPI, a complete review of systems was performed and all other systems are negative. Physical examination: Vital signs reviewed General: non toxic, no distress, appears at stated age, normal weight Derm: no unusual rashes/lesions, warm, dry skin throughout Head: atraumatic, normocephalic, symmetric, Thinning of lateral third of eyebrow Eyes: EOMI, anicteric sclera, pupils equal round reactive to light ENT: Nose and ears atraumatic Neck: trachea midline, supple Mouth: no lip lesion, mucus membranes moist Cardiovascular: S1S2 reg, no murmur, positive dorsalis pedis pulse bilateral, no edema Lungs: CTA bilateral, no rhonchi, no rales, no accessory muscle use Abdominal: soft, nontender to palpation, no guarding Ext: R UE atrophic, all other extremities intact. Neuro: CN II-XI grossly intact, no gross focal neuro deficits Psych: Alert, oriented to person, place, and time Assessment/Plan: 64-year-old male with history of hypertension alcohol abuse cancer admitted for encephalopathy. # Altered mental status # Encephalopathy Brain CT negative, TSH elevated Patient seems very pleasant and no longer aggressive. Plan: - Increase Synthroid to 200 mcg a day - Psychiatry consult (recommended discontinuing Abilify and Zyprexa, adding Risperdal 1 Mg twice daily, melatonin 9 Mg nightly, Zoloft 50 Mg daily) #HTN Plan: -Continue Losartan 25mg daily -Continue metoprolol 25mg BID # BPH Plan: -Continue tamsulosin 0.4mg daily F: Dextrose 5%-0.45% NaCl 75ml/hr E: As needed N: Normal diet A: As tolerated DVT prophylaxis: Lovenox 40mg daily CODE STATUS: FULL CODE Discussed with: DR SAVAGE Anticipated discharge place: [facility] Sangeeta Hall MD PGY-1 IM Attestation I have seen and examined this patient with my resident , discussed the same with the resident/JULIETA, and agree with the dictator's assessment and plan as written Dr. Zachary savage Past Medical History Past Medical History: Cancer, Hypertension Additional Past Medical History / Comment(s): Hypothyroidism, BPH, History alcohol abuse. States now drinks occasionally, last drink 10 months ago. History of Any Multi-Drug Resistant Organisms: None Reported Past Surgical History: No Surgical Hx Reported Past Anesthesia/Blood Transfusion Reactions: No Reported Reaction Past Psychological History: Anxiety, Depression Smoking Status: Current every day smoker Past Alcohol Use History: Abuse Past Drug Use History: None Reported - Past Family History Mother Family Medical History: CVA/TIA Medications and Allergies Home Medications Medication Instructions Recorded Confirmed Type Tamsulosin HCl [Flomax] 0.4 mg PO DAILY@0600 11/26/16 12/18/24 History Cholecalciferol [Vitamin D3 (25 25 mcg PO DAILY@1400 05/09/22 12/18/24 History Mcg = 1000 Iu)] Docusate [Colace] 100 mg PO BID@599,199905/09/22 12/18/24 History Melatonin 9 mg PO HS@199905/09/22 12/18/24 History amLODIPine [Norvasc] 10 mg PO DAILY@59905/09/22 12/18/24 History Losartan [Cozaar] 25 mg PO DAILY@59910/25/24 12/18/24 History ARIPiprazole [Abilify] 5 mg PO DAILY@59912/18/24 12/18/24 History Acetaminophen [Tylenol 8 Hour] 650 mg PO BID PRN 12/18/24 12/18/24 History Acetaminophen [Tylenol 8 Hour] 650 mg PO BID@06,199912/18/24 12/18/24 History Atorvastatin [Lipitor] 40 mg PO HS@199912/18/24 12/18/24 History Levothyroxine Sodium [Synthroid] 150 mcg PO DAILY@0625 07/28/25 History Metoprolol Tartrate [Lopressor] 25 mg PO BID@12/18/24 12/18/24 History OLANZapine [ZyPREXA] 7.5 mg PO DAILY@59912/18/24 12/18/24 History Allergies Allergy/AdvReac Type Severity Reaction Status Date / Time No Known Allergies Allergy Verified 12/18/24 17:46 Physical Exam Vitals: Vital Signs Temp Pulse Pulse Resp BP BP Pulse Ox 12/19/24 13:30 97.9 F 57 L 18 124/63 94 L 12/19/24 09:47 93 L 12/19/24 07:30 60 19 12/19/24 06:48 97.7 F 60 19 144/70 96 12/19/24 06:21 54 L 139/74 12/19/24 03:49 97.5 F L 55 L 18 124/72 93 L 12/19/24 00:00 97.6 F 68 19 163/78 92 L 12/18/24 23:34 69 18 162/90 97 12/18/24 22:00 70 18 163/89 97 12/18/24 21:00 64 18 152/84 97 12/18/24 20:00 61 18 186/91 99 12/18/24 19:00 68 18 162/78 99 Intake and Output 12/19/24 12/19/24 12/19/24 06:59 14:59 22:59 Output Total 725 Balance -725 Output: Urine 725 Other: # Voids 2 Weight 81.647 kg Results CBC & Chem 7: 12/19/24 02:44 12/19/24 02:44 Labs: Abnormal Lab Results - Last 24 Hours (Table) 12/18/24 12/19/24 12/19/24 Range/Units 17:00 02:44 02:44 RBC 3.85 L (4.40-5.60) X 10*6/uL Hgb 12.2 L (13.0-17.0) g/dL Hct 37.3 L (39.6-50.0) % BUN 32.6 H (9.0-27.0) mg/dL BUN/Creatinine Ratio 25.08 H (12.00-20.00) Ratio Glucose 156 H (70-110) mg/dL Total Bilirubin 0.2 L (0.3-1.2) mg/dL Alkaline Phosphatase 136 H (41-126) U/L Albumin/Globulin Ratio 1.52 L (1.60-3.17) Ratio TSH 45.600 H (0.465-4.680) mIU/L Urine Protein (Negative) U Benzodiazepines Scrn (NotDetected) 12/19/24 Range/Units 05:25 RBC (4.40-5.60) X 10*6/uL Hgb (13.0-17.0) g/dL Hct (39.6-50.0) % BUN (9.0-27.0) mg/dL BUN/Creatinine Ratio (12.00-20.00) Ratio Glucose (70-110) mg/dL Total Bilirubin (0.3-1.2) mg/dL Alkaline Phosphatase (41-126) U/L Albumin/Globulin Ratio (1.60-3.17) Ratio TSH (0.465-4.680) mIU/L Urine Protein Trace H (Negative) U Benzodiazepines Scrn Detected H (NotDetected) Thrombosis Risk Factor Assmnt - Choose All That Apply Each Factor Represents 1 point: Obesity (BMI >25) Each Risk Factor Represents 2 Points: Age 61-74 years Thrombosis Risk Factor Assessment Total Risk Factor Score: 3 Thrombosis Risk Factor Assessment Level: Moderate Risk
[2024-12-20] MEDS ORDERED: ARIPiprazole 5 MG TAB PO SCH (06:00)
[2024-12-20] MEDS ORDERED: LEVOTHYROXINE 75 MCG TAB PO SCH (06:00)
[2024-12-20] MEDS: amLODIPine 10 MG TAB PO SCH (06:29)
[2024-12-20] MEDS: LOSARTAN 25 MG TAB PO SCH (06:29)
[2024-12-20] MEDS: LEVOTHYROXINE 100 MCG TAB PO SCH (06:29)
[2024-12-20] MEDS: TAMSULOSIN 0.4 MG CAP.ER.24H PO SCH (06:29)
[2024-12-20] MEDS: ENOXAPARIN 40 MG/0.4 ML SYRINGE SQ SCH (09:29)
--- NOTE | 2024-12-20 14:35 | P.PN ---
Subjective Progress Note Date: 12/20/24 Hospital Course:Patient is a 64-year-old male with a past medical history of hypertension, alcohol abuse, and cancer was sent to the ED by the extended care facility for wreaking havoc and aggressive behavior - was given ketamine by EMS on the way to the ED. On examination patient seems very pleasant and explains he was getting very angry at another co-resident of [facility]. Subjective: 12/20/2024: Patient seen at bedside this morning. No acute concerns at this time. Wants to go back home. No longer confused or aggressive Pertinent positives and negatives as discussed above, a complete review of systems was performed and all other systems are negative. Vitals: Signs Reviewed Physical Exam: General: non toxic, no distress, appears at stated age, normal weight Derm: no unusual rashes/lesions, warm, dry skin throughout Head: atraumatic, normocephalic, symmetric, Thinning of lateral third of eyebrow Eyes: EOMI, anicteric sclera, pupils equal round reactive to light ENT: Nose and ears atraumatic Neck: trachea midline, supple Mouth: no lip lesion, mucus membranes moist Cardiovascular: S1S2 reg, no murmur, positive dorsalis pedis pulse bilateral, no edema Lungs: CTA bilateral, no rhonchi, no rales, no accessory muscle use Abdominal: soft, nontender to palpation, no guarding Ext: R UE atrophic, all other extremities intact. Neuro: CN II-XI grossly intact, no gross focal neuro deficits Psych: Alert, oriented to person, place, and time Data Received Today: Pertinent Labs: Recent labs from 12/19, hemoglobin 12.2, creatinine 1.3, BUN 32.6, positive for benzodiazepines Imaging: No new imaging ordered, brain CT from December 18 was negative for any acute intracranial process A/P # Altered mental status # Encephalopathy Brain CT negative, TSH elevated Patient seems very pleasant and no longer aggressive. Plan: - Continue Synthroid to 200 mcg a day - Psychiatry consult (recommended discontinuing Abilify and Zyprexa, adding Risperdal 1 Mg twice daily, melatonin 9 Mg nightly, Zoloft 50 Mg daily) #HTN Plan: -Continue Losartan 25mg daily -Continue metoprolol 25mg BID # BPH Plan: -Continue tamsulosin 0.4mg daily F: Dextrose 5%-0.45% NaCl 75ml/hr E: As needed N: Normal diet A: As tolerated DVT prophylaxis: Lovenox 40mg daily CODE STATUS: FULL CODE Discussed with: DR SAVAGE Anticipated discharge place[facility] Sangeeta Hall MD PGY-1 IM Attestation I have seen and examined this patient with my resident , discussed the same with the resident/JULIETA, and agree with the dictator's assessment and plan as written Dr. Zachary savage Objective - Vital Signs Vital signs: Vital Signs Temp 97.9 F 12/20/24 07:21 Pulse 67 12/20/24 07:21 Resp 17 12/20/24 07:21 BP 160/66 12/20/24 07:21 Pulse Ox 94 L 12/20/24 07:21 FiO2 Intake & Output 12/19/24 12/20/24 12/20/24 18:59 06:59 18:59 Other: # Voids 2 1 - Labs CBC & Chem 7: 12/19/24 02:44 12/21/24 04:56 Labs: Abnormal Lab Results - Last 24 Hours (Table) 12/19/24 12/19/24 Range/Units 02:44 02:44 RBC 3.85 L (4.40-5.60) X 10*6/uL Hgb 12.2 L (13.0-17.0) g/dL Hct 37.3 L (39.6-50.0) % BUN 32.6 H (9.0-27.0) mg/dL BUN/Creatinine Ratio 25.08 H (12.00-20.00) Ratio Glucose 156 H (70-110) mg/dL Total Bilirubin 0.2 L (0.3-1.2) mg/dL Alkaline Phosphatase 136 H (41-126) U/L Albumin/Globulin Ratio 1.52 L (1.60-3.17) Ratio
--- NOTE | 2024-12-20 15:30 | P.DS ---
Providers Date of admission: 12/18/24 19:53 Attending physician: Mo Walker Consults: 12/18/24 19:52 Consult Physician Routine Consulting Provider: Psychiatry - [facility] Psychiatry Consult Reason/Comments: ams Do you want consulting provider notified?: Yes Primary care physician: Laura Burroughs DO Hospital Course: Hospital Course: Patient is a 64-year-old male with a past medical history of hypertension, alcohol abuse, and cancer was sent to the ED by the [facility] for wreaking havoc and aggressive behavior - was given ketamine by EMS on the way to the ED. Brain CT was negative for any intracranial processes. During the patients stay, it was noted he had some excema and thinning of his eyebrows, likely d/t hypothyroidism. His synthroid was increased to 200mcg/day. Psych was consulted and made some medication changes. He significantly improved throughougt his hosptial stay. ED vitals: Temp99, 155/85, RR18, 96% on RA ED labs: Cr 1.71, BUN 41, TSH 45.6 Discharge Vital: Patient hemodynamically stable Discharge Labs: Hgb 12.2, Cr1.3, BUN 32.6 Patient is medically stable for discharge. Final Diagnosis: #Altered mental status #Encephalopathy #HTN #BPH Physical examination: General: non toxic, no distress, appears at stated age, normal weight Derm: no unusual rashes/lesions, warm, dry skin throughout Head: atraumatic, normocephalic, symmetric, Thinning of lateral third of eyebrow Eyes: EOMI, anicteric sclera, pupils equal round reactive to light ENT: Nose and ears atraumatic Neck: trachea midline, supple Mouth: no lip lesion, mucus membranes moist Cardiovascular: S1S2 reg, no murmur, positive dorsalis pedis pulse bilateral, no edema Lungs: CTA bilateral, no rhonchi, no rales, no accessory muscle use Abdominal: soft, nontender to palpation, no guarding Ext: R UE atrophic, all other extremities intact. Neuro: CN II-XI grossly intact, no gross focal neuro deficits Psych: Alert, oriented to person, place, and time Attestation I have seen and examined this patient with my resident , discussed the same with the resident/JULIETA, and agree with the dictator's assessment and plan as written Dr. Zachary huerta Patient Condition at Discharge: Stable Plan - Discharge Summary Discharge Rx Participant: No New Discharge Prescriptions: New risperiDONE ODT [RisperDAL M-TAB] 1 mg PO BID 30 Days #60 tab Levothyroxine Sodium [Synthroid] 200 mcg PO DAILY@0630 30 Days #60 tab Sertraline [Zoloft] 25 mg PO DAILY 30 Days #30 tab Continue Tamsulosin HCl [Flomax] 0.4 mg PO DAILY@0600 Cholecalciferol [Vitamin D3 (25 Mcg = 1000 Iu)] 25 mcg PO DAILY@1400 Docusate [Colace] 100 mg PO BID@06,1999 amLODIPine [Norvasc] 10 mg PO DAILY@0600 Losartan [Cozaar] 25 mg PO DAILY@0600 Atorvastatin [Lipitor] 40 mg PO HS@1999 Acetaminophen [Tylenol 8 Hour] 650 mg PO BID PRN PRN Reason: Pain Melatonin 9 mg PO HS@1999 Metoprolol Tartrate [Lopressor] 25 mg PO BID@599,1999 Discontinued OLANZapine [ZyPREXA] 7.5 mg PO DAILY@0600 Levothyroxine Sodium [Synthroid] 150 mcg PO DAILY@06 Acetaminophen [Tylenol 8 Hour] 650 mg PO BID@599,1999 ARIPiprazole [Abilify] 5 mg PO DAILY@0600 Discharge Medication List Tamsulosin HCl [Flomax] 0.4 mg PO DAILY@0600 11/26/16 [History] Cholecalciferol [Vitamin D3 (25 Mcg = 1000 Iu)] 25 mcg PO DAILY@1400 05/09/22 [History] Docusate [Colace] 100 mg PO BID@0600,199905/09/22 [History] Melatonin 9 mg PO HS@199905/09/22 [History] amLODIPine [Norvasc] 10 mg PO DAILY@0600 05/09/22 [History] Losartan [Cozaar] 25 mg PO DAILY@0600 10/25/24 [History] Acetaminophen [Tylenol 8 Hour] 650 mg PO BID PRN 12/18/24 [History] Atorvastatin [Lipitor] 40 mg PO HS@199912/18/24 [History] Metoprolol Tartrate [Lopressor] 25 mg PO BID@0600,199912/18/24 [History] Levothyroxine Sodium [Synthroid] 200 mcg PO DAILY@0630 30 Days #60 tab 12/20/24 [Rx] Sertraline [Zoloft] 25 mg PO DAILY 30 Days #30 tab 12/20/24 [Rx] risperiDONE ODT [RisperDAL M-TAB] 1 mg PO BID 30 Days #60 tab 12/20/24 [Rx] Follow up Appointment(s)/Referral(s): Laura Burroughs DO [Primary Care Provider] - 1-2 days Activity/Diet/Wound Care/Special Instructions: check tsh and T3 in 4-6 weeks, adjust synthroid dose as needed by PCP Discharge Disposition: TRANSFER TO PSYCH HOSP/UNIT
[2024-12-21 05:48] VITALS: BP 151/74; PULSE 62; RESP 16; TEMP 97.6
[2024-12-21 08:22] LABS: ALT 26 U/L (10-49); AST 24 U/L (14-35); Albumin 3.8 g/dL (3.8-4.9); Albumin/Globulin Ratio 1.52 Ratio (1.60-3.17); Alkaline Phosphatase 137 U/L (41-126); Anion Gap 9.70 mmol/L (4.00-12.00); BUN/Creat Ratio 17.00 Ratio (12.00-20.00); Blood Urea Nitrogen 23.8 mg/dL (9.0-27.0); Calcium 8.7 mg/dL (8.7-10.3); Carbon Dioxide 25.3 mmol/L (21.6-31.8); Chloride 105 mmol/L (96-109); Globulin 2.5 g/dL (1.6-3.3); Glucose 89 mg/dL (70-110); Potassium 4.4 mmol/L (3.5-5.5); Sodium 140 mmol/L (135-145); Total Protein 6.3 g/dL (6.2-8.2)
[2024-12-21 10:12] LABS: Basophils # (A) 0.03 X 10*3/uL (0.00-0.10); Basophils % (A) 0.3 %; Eosinophils # (A) 0.33 X 10*3/uL (0.04-0.35); Eosinophils % (A) 3.6 %; HCT 40.3 % (39.6-50.0); HGB 12.9 g/dL (13.0-17.0); Immature Grans, Automated 0.70 %; Lymphocytes # (A) 2.01 X 10*3/uL (0.90-5.00); Lymphocytes % (A) 22.0 %; MCH 31.6 pg (27.0-32.0); MCHC 32.0 g/dL (32.0-37.0); MCV 98.8 FL (80.0-97.0); Monocytes # (A) 1.11 X 10*3/uL (0.20-1.00); Monocytes % (A) 12.1 %; NRBC Per 100 WBC 0 X 10*3/uL (0.00-0.01); Neutrophils # (A) 5.60 X 10*3/uL (1.80-7.70); Neutrophils % (A) 61.3 %; Platelet Count 225 X 10*3/uL (140-440); RBC 4.08 X 10*6/uL (4.40-5.60); RDW 14.4 % (11.5-14.5); WBC 9.14 X 10*3/uL (4.50-10.00)
== END 2024-12-21 07:16 ==
LOC: EC 16:47 → 4SSUR 19:53
PROVIDERS: ADMIT Hospitalist; ATTEND Hospitalist
DX: G93.40 Encephalopathy, unspecified (principal); F60.9 Personality disorder, unspecified; F43.22 Adjustment disorder with anxiety; G31.84 Mild cognitive impairment of uncertain or unknown etiology; F32.A Depression, unspecified; I10 Essential (primary) hypertension; N40.0 Benign prostatic hyperplasia without lower urinary tract symptoms; E03.9 Hypothyroidism, unspecified; L30.9 Dermatitis, unspecified; C80.1 Malignant (primary) neoplasm, unspecified; F10.10 Alcohol abuse, uncomplicated; E66.9 Obesity, unspecified; Z68.27 Body mass index [BMI] 27.0-27.9, adult; F17.200 Nicotine dependence, unspecified, uncomplicated; Z79.890 Hormone replacement therapy; Z79.899 Other long term (current) drug therapy
CPT/HCPCS: 96372; 82075; 96361; 96374; 99285; 36415; 94760; 93005; 84439; 80053 ×3; 84443; 82140; 83735 ×2; 84100 ×2; 84484; 85025 ×3; 85610; 85730; 81003; 80306; 80320; 70450; G0378 ×4; J2060; J1650